=== PATIENT | female | born 1950 | race Caucasian/White ===

== ENCOUNTER 2018-03-22 13:55 | Emergency (ER) | payer MEDICARE, MEDICAID ==
[~2018-03-22] VITALS: Ht 165.1 cm; Wt 59.1 kg
[~2018-03-22 13:55] MED LIST: CHLO25CA10 PO; CITA-278 PO; MORP15TA PO; NAPR-56 PO; ONDA4TAB6 PO
[2018-03-22] MEDS ORDERED: LORazepam 1 MG tablet PO ONE (14:00)
[2018-03-22 14:23] LABS: BASOPHILS % (AUTO) 0.5 % (0-1); EOSINOPHILS # (AUTO) 0.2 X10'3 (0-0.9); EOSINOPHILS % (AUTO) 3.3 % (0-6); HEMATOCRIT 40.5 % (35.0-45.0); HEMOGLOBIN 13.2 g/dl (12.0-16.0); LYMPHOCYTES # (AUTO) 2.7 X10'3 (1.1-4.8); MEAN CORPUSCULAR HEMOGLOBIN 30.5 PG (27.0-31.0); MEAN CORPUSCULAR HGB CONC 32.7 % (33.0-36.5); MEAN CORPUSCULAR VOLUME 93.1 FL (78-98); MEAN PLATELET VOLUME 7.5 FL (7.4-10.4); MONOCYTES # (AUTO) 0.5 X10'3 (0-0.9); MONOCYTES % (AUTO) 6.5 % (2-12); NEUTROPHILS % (AUTO) 53.7 % (42-75); PLATELET COUNT 446 X10'3 (140-440); RED BLOOD COUNT 4.35 X10'6 (4.20-5.60); WHITE BLOOD COUNT 7.4 X10'3 (4.5-11.0)
[2018-03-22 14:37] LABS: ALANINE AMINOTRANSFERASE 20 U/L (12-78); ALBUMIN 3.5 G/DL (3.4-5.0); ALKALINE PHOSPHATASE 143 IU/L (46-116); ANION GAP 17 (8-16); ASPARTATE AMINO TRANSFERASE 19 U/L (10-37); BILIRUBIN,TOTAL 0.2 MG/DL (0.1-1.0); BLOOD UREA NITROGEN 14 MG/DL (7-18); BUN/CREATININE RATIO 20.3 (6.6-38.0); CALCIUM 8.5 MG/DL (8.5-10.1); CHLORIDE 108 MMOL/L (99-107); CREATININE 0.69 MG/DL (0.40-0.90); GLUCOSE 92 MG/DL (70-104); POTASSIUM 3.7 MMOL/L (3.5-5.1); SODIUM 146 MMOL/L (135-145); TOTAL CARBON DIOXIDE 20.8 MMOL/L (24-32); TOTAL PROTEIN 7.1 G/DL (6.4-8.2); eGFR 85 ML/MIN
[2018-03-22 14:45] LABS: ETHANOL 0.289 GM/DL (0.0-0.010)
[2018-03-22] MEDS ORDERED: thiamine 100mg/ml 2ml inj. IV ONE (15:10)
[2018-03-22] MEDS ORDERED: normal saline 1000ML IV soln IVB ONE (15:10)
[2018-03-22] MEDS ORDERED: folic acid 1mg/0.2ml inj IV ONE (15:10)
[2018-03-22 15:19] LABS: CLARITY,URINE SLIGHTLY CLOUDY (Clear); COLOR,URINE YELLOW (Yellow); GLUCOSE, URINE NEGATIVE (Neg); KETONES,URINE NEGATIVE (Neg); LEUKOCYTE ESTERASE ,URINE TRACE (Neg); NITRITES, URINE NEGATIVE (Neg); OCCULT BLOOD,URINE TRACE-INTACT (Neg); PH,URINE 5.5 (4.8-8.0); PROTEIN,URINE NEGATIVE (Neg); UROBILINOGEN,URINE 0.2 E.U/dL (0.2-1.0)
[2018-03-22 15:26] LABS: UA COLLECTION TYPE VOIDED
[2018-03-22 15:30] LABS: BACTERIA,URINE 2+ /HPF (Neg); RBC,URINE 0-2 /HPF (0-2); SQUAMOUS EPITHELIAL CELL,UR MODERATE /LPF (FEW); TRANSITIONAL EPI CELLS,URINE FEW /HPF; WBC,URINE 0-4 /HPF (0-4)
[2018-03-22 15:33] LABS: URINE AMPHETAMINE SCREEN NEGATIVE (Neg); URINE BARBITUATE SCREEN NEGATIVE (Neg); URINE BENZODIAZEPINES SCREEN NEGATIVE (Neg); URINE CANNABINOID SCREEN NEGATIVE (Neg); URINE COCAINE SCREEN NEGATIVE (Neg); URINE METHADONE SCREEN NEGATIVE (Neg); URINE OPIATE SCREEN POSITIVE (Neg); URINE PHENCYCLIDINE SCREEN NEGATIVE (Neg)
[2018-03-22] MEDS ORDERED: HYDROcodone/acetaminophen 10/325mg tab PO ONE (17:05)
[2018-03-22] MEDS ORDERED: ketorolac trometh inj. 60 MG/2 ML VIAL IM ONE (17:05)
[2018-03-22] MEDS ORDERED: folic acid 1mg tablet PO ONE (20:15)
[2018-03-22] MEDS ORDERED: morphine 4 MG/ML inj SYRINge IM ONE (21:05)
[2018-03-23] MEDS: HYDROcodone/acetaminophen 10/325mg tab PO PRN (02:01)
[2018-03-23] MEDS ORDERED: morphine 4 MG/ML inj SYRINge IM ONE (05:55)
[2018-03-23] MEDS ORDERED: ketorolac tromethamine 15mg/ml inj. IM ONE (06:25)
[2018-03-23] MEDS ORDERED: CHLO25CA10 PO (08:10)
[2018-03-23] MEDS: citalopram 20mg tablet PO SCH (08:58)
[2018-03-23] MEDS: naproxen 500mg tablet PO SCH ×2 (08:59→20:11)
[2018-03-23] MEDS: morphine 10mg/0.5ml (conc. morphine) oral syringe PO PRN ×2 (09:26→21:28)
[2018-03-23] MEDS: chlordiazePOXIDE 25mg capsule PO SCH ×2 (11:31→20:11)
[2018-03-23] MEDS ORDERED: chlordiazePOXIDE 25mg capsule PO SCH (20:00)
[2018-03-24] MEDS: HYDROcodone/acetaminophen 10/325mg tab PO PRN (05:36)
[2018-03-24] MEDS ORDERED: magnesium hydroxide 30ml (MOM) UD suspension PO ONE (06:40)
[2018-03-24] MEDS: citalopram 20mg tablet PO SCH (07:22)
[2018-03-24] MEDS: chlordiazePOXIDE 25mg capsule PO SCH (07:22)
[2018-03-24] MEDS: naproxen 500mg tablet PO SCH (08:04)
[2018-03-24] MEDS: morphine 10mg/0.5ml (conc. morphine) oral syringe PO PRN (08:46)
[2018-03-24 10:38] VITALS: BP 149/89
== END 2018-03-24 10:30 ==
LOC: ER 13:55
DX: F10.129 Alcohol abuse with intoxication, unspecified (principal); F29 Unspecified psychosis not due to a substance or known physiological condition; E86.0 Dehydration; E03.9 Hypothyroidism, unspecified; G89.29 Other chronic pain; M54.5 Low back pain; J44.9 Chronic obstructive pulmonary disease, unspecified; K21.9 Gastro-esophageal reflux disease without esophagitis; M19.90 Unspecified osteoarthritis, unspecified site; Z88.1 Allergy status to other antibiotic agents; Z79.899 Other long term (current) drug therapy; Y90.9 Presence of alcohol in blood, level not specified; Z60.2 Problems related to living alone
CPT/HCPCS: 36415; 80053; 80305; 80320; 81001; 84443; 85025; 96361; 96372; 96374; 99285; J1885; J2270; J3411; J7030; J3490

== ENCOUNTER 2018-03-24 08:18 | Inpatient (IN) | payer MEDICARE, MEDICAID ==
[~2018-03-24] VITALS: Ht 165.1 cm; Wt 61.2 kg
[2018-03-24] MEDS ORDERED: mag hydrox/Alum hydrox/simeth 30ml oral suspension PO PRN (10:45)
[2018-03-24] MEDS ORDERED: acetaminophen 325mg tablet PO PRN ×2 (10:45)
[2018-03-24] MEDS ORDERED: magnesium hydroxide 30ml (MOM) UD suspension PO PRN (10:45)
[2018-03-24] MEDS ORDERED: tuberculin, purif. prot. deriv. 5 units/0.1ml ID ONE (10:45)
[2018-03-24 15:00] VITALS: BP 134/67
[2018-03-24] MEDS ORDERED: LORazepam 1 MG tablet PO ONE (15:35)
[2018-03-24] MEDS: HYDROcodone/acetaminophen 10/325mg tab PO PRN (16:44)
[2018-03-24 19:00] VITALS: BP 122/62
[2018-03-24] MEDS: LORazepam 1 MG tablet PO SCH (20:56)
[2018-03-25] MEDS: HYDROcodone/acetaminophen 10/325mg tab PO PRN ×4 (00:01→16:55)
[2018-03-25 08:00] VITALS: BP 109/71
[2018-03-25] MEDS ORDERED: venlafaxine XR 37.5mg cap (Q24H) PO SCH (08:00)
[2018-03-25 08:11] LABS: CHOL/HDL RATIO 2.1 (0.00-4.99); CHOLESTEROL 200 MG/DL (0-200); HDL CHOLESTEROL 94 MG/DL (35-60); LDL CHOLESTEROL 92 MG/DL (50-100); TRIGLYCERIDES 73 MG/DL (20-135)
[2018-03-25 08:13] LABS: HEMOGLOBIN A1C 5.3 % (4.5-6.2)
[2018-03-25] MEDS: LORazepam 1 MG tablet PO SCH ×2 (08:18→12:29)
[2018-03-25 19:00] VITALS: BP 132/69
[2018-03-25] MEDS: LORazepam 1 MG tablet PO PRN (20:48)
[2018-03-25] MEDS: traZODone 50mg tablet PO PRN (20:48)
[2018-03-26] MEDS: HYDROcodone/acetaminophen 10/325mg tab PO PRN ×4 (00:06→20:30)
[2018-03-26] MEDS: venlafaxine XR 37.5mg cap (Q24H) PO SCH (07:31)
[2018-03-26] MEDS: LORazepam 1 MG tablet PO PRN ×3 (07:31→19:15)
[2018-03-26] MEDS: nicotine 14mg patch - 24hr TD SCH (07:33)
[2018-03-26 08:00] VITALS: BP 112/78
[2018-03-26] MEDS: gabapentin 100mg capsule PO SCH ×2 (12:52→20:29)
[2018-03-26 19:00] VITALS: BP 127/68
[2018-03-26] MEDS: traZODone 50mg tablet PO PRN (20:29)
[2018-03-27] MEDS: HYDROcodone/acetaminophen 10/325mg tab PO PRN ×4 (04:55→19:33)
[2018-03-27] MEDS: gabapentin 100mg capsule PO SCH ×3 (07:57→20:50)
[2018-03-27] MEDS: venlafaxine XR 37.5mg cap (Q24H) PO SCH (07:57)
[2018-03-27] MEDS: LIDOcaine 5% patch TP SCH (07:59)
[2018-03-27] MEDS: nicotine 14mg patch - 24hr TD SCH (07:59)
[2018-03-27 08:00] VITALS: BP 114/68
[2018-03-27] MEDS: LORazepam 1 MG tablet PO PRN ×2 (09:35→20:49)
[2018-03-27] MEDS: naproxen sodium 220mg tablet PO PRN (09:35)
[2018-03-27 19:55] VITALS: BP 120/81
[2018-03-27] MEDS: traZODone 50mg tablet PO PRN (20:49)
[2018-03-28 08:00] VITALS: BP 127/76
[2018-03-28] MEDS: gabapentin 100mg capsule PO SCH ×3 (08:01→20:12)
[2018-03-28] MEDS: venlafaxine XR 37.5mg cap (Q24H) PO SCH (08:02)
[2018-03-28] MEDS: LIDOcaine 5% patch TP SCH (08:02)
[2018-03-28] MEDS: HYDROcodone/acetaminophen 10/325mg tab PO PRN ×3 (08:02→20:11)
[2018-03-28] MEDS: nicotine 14mg patch - 24hr TD SCH (08:06)
[2018-03-28] MEDS: LORazepam 1 MG tablet PO PRN ×3 (08:38→20:12)
[2018-03-28] MEDS: naproxen sodium 220mg tablet PO PRN (12:18)
[2018-03-28 19:47] VITALS: BP 131/77
[2018-03-28] MEDS: traZODone 50mg tablet PO PRN (20:11)
[2018-03-29] MEDS: HYDROcodone/acetaminophen 10/325mg tab PO PRN ×4 (05:37→17:53)
[2018-03-29 07:00] VITALS: BP 119/72
[2018-03-29] MEDS: gabapentin 100mg capsule PO SCH ×3 (07:41→20:57)
[2018-03-29] MEDS: venlafaxine XR 37.5mg cap (Q24H) PO SCH (07:41)
[2018-03-29] MEDS: LIDOcaine 5% patch TP SCH (07:42)
[2018-03-29] MEDS: nicotine 14mg patch - 24hr TD SCH (07:42)
[2018-03-29] MEDS: LORazepam 1 MG tablet PO PRN ×2 (07:46→21:01)
[2018-03-29 20:00] VITALS: BP 157/83
[2018-03-29] MEDS: traZODone 50mg tablet PO PRN (21:01)
[2018-03-30] MEDS: HYDROcodone/acetaminophen 10/325mg tab PO PRN ×5 (01:30→20:00)
[2018-03-30 07:35] VITALS: BP 138/70
[2018-03-30] MEDS: gabapentin 100mg capsule PO SCH ×3 (07:43→20:56)
[2018-03-30] MEDS: LORazepam 1 MG tablet PO PRN ×2 (07:44→21:23)
[2018-03-30] MEDS: venlafaxine XR 37.5mg cap (Q24H) PO SCH (07:44)
[2018-03-30] MEDS: LIDOcaine 5% patch TP SCH (07:45)
[2018-03-30] MEDS: nicotine 14mg patch - 24hr TD SCH (07:45)
[2018-03-30] MEDS: naproxen sodium 220mg tablet PO PRN (16:54)
[2018-03-30 20:08] VITALS: BP 129/68
[2018-03-30] MEDS: traZODone 50mg tablet PO PRN (20:55)
[2018-03-31] MEDS: HYDROcodone/acetaminophen 10/325mg tab PO PRN ×5 (00:12→18:04)
[2018-03-31 07:53] VITALS: BP 112/53
[2018-03-31] MEDS: gabapentin 100mg capsule PO SCH ×3 (07:56→20:20)
[2018-03-31] MEDS: venlafaxine 25mg tablet PO SCH ×2 (07:56→13:20)
[2018-03-31] MEDS: nicotine 14mg patch - 24hr TD SCH (07:57)
[2018-03-31] MEDS: LIDOcaine 5% patch TP SCH (07:57)
[2018-03-31] MEDS: LORazepam 1 MG tablet PO PRN ×2 (10:36→18:03)
[2018-03-31 19:00] VITALS: BP 158/79
[2018-03-31] MEDS: naproxen sodium 220mg tablet PO PRN (20:19)
[2018-03-31] MEDS: traZODone 50mg tablet PO PRN (20:20)
[2018-04-01] MEDS: nicotine 14mg patch - 24hr TD SCH (07:07)
[2018-04-01] MEDS: LIDOcaine 5% patch TP SCH (07:07)
[2018-04-01] MEDS: venlafaxine XR 75mg capsule (Q24H) PO SCH (07:08)
[2018-04-01] MEDS: gabapentin 100mg capsule PO SCH ×3 (07:08→19:33)
[2018-04-01] MEDS: HYDROcodone/acetaminophen 10/325mg tab PO PRN ×3 (07:09→17:26)
[2018-04-01 07:34] VITALS: BP 128/71
[2018-04-01] MEDS: LORazepam 1 MG tablet PO PRN (09:12)
[2018-04-01 19:00] VITALS: BP 164/96
[2018-04-01] MEDS: traZODone 50mg tablet PO PRN (19:32)
[2018-04-02] MEDS: LORazepam 1 MG tablet PO PRN (02:03)
[2018-04-02] MEDS: HYDROcodone/acetaminophen 10/325mg tab PO PRN ×5 (02:03→20:40)
[2018-04-02] MEDS: nicotine 14mg patch - 24hr TD SCH (07:36)
[2018-04-02] MEDS: venlafaxine XR 75mg capsule (Q24H) PO SCH (07:36)
[2018-04-02] MEDS: gabapentin 100mg capsule PO SCH ×4 (07:36→20:37)
[2018-04-02 08:00] VITALS: BP 139/86
[2018-04-02] MEDS: LIDOcaine 5% patch TP SCH (08:01)
[2018-04-02] MEDS ORDERED: HYDROcodone/acetaminophen 10/325mg tab PO PRN (09:00)
[2018-04-02] MEDS ORDERED: MESSAGE TO NURSING PO NR (10:00)
[2018-04-02] MEDS: LORazepam 0.5 MG tablet PO PRN (12:09)
[2018-04-02 19:00] VITALS: BP 115/76
[2018-04-02] MEDS: mirtazapine 15mg tablet PO SCH (20:38)
[2018-04-03] MEDS: LORazepam 0.5 MG tablet PO PRN (04:02)
[2018-04-03] MEDS: HYDROcodone/acetaminophen 10/325mg tab PO PRN ×5 (04:02→21:20)
[2018-04-03] MEDS: gabapentin 100mg capsule PO SCH ×2 (07:50→12:20)
[2018-04-03] MEDS: venlafaxine XR 75mg capsule (Q24H) PO SCH (07:50)
[2018-04-03] MEDS: nicotine 14mg patch - 24hr TD SCH (07:51)
[2018-04-03] MEDS: LIDOcaine 5% patch TP SCH (07:51)
[2018-04-03 08:00] VITALS: BP 138/81
[2018-04-03] MEDS ORDERED: HYDROcodone/acetaminophen 10/325mg tab PO PRN (16:35)
[2018-04-03 19:47] VITALS: BP 108/53
[2018-04-03] MEDS: gabapentin 300mg capsule PO SCH (21:20)
[2018-04-03] MEDS: mirtazapine 15mg tablet PO SCH (21:20)
[2018-04-04] MEDS: HYDROcodone/acetaminophen 10/325mg tab PO PRN ×4 (02:56→19:13)
[2018-04-04 07:28] VITALS: BP 106/61
[2018-04-04] MEDS: venlafaxine XR 75mg capsule (Q24H) PO SCH (08:08)
[2018-04-04] MEDS: gabapentin 300mg capsule PO SCH ×3 (08:08→14:28)
[2018-04-04] MEDS: nicotine 14mg patch - 24hr TD SCH (08:08)
[2018-04-04] MEDS: LIDOcaine 5% patch TP SCH (08:09)
[2018-04-04] MEDS: LORazepam 0.5 MG tablet PO PRN (14:34)
[2018-04-04] MEDS ORDERED: HYDROcodone/acetaminophen 10/325mg tab PO PRN (19:50)
[2018-04-04 19:59] VITALS: BP 127/63
[2018-04-04] MEDS: mirtazapine 15mg tablet PO SCH (21:00)
[2018-04-04] MEDS: traZODone 50mg tablet PO PRN (21:51)
[2018-04-04] MEDS: gabapentin 400mg capsule PO SCH (21:51)
[2018-04-04] MEDS: gabapentin 100mg capsule PO SCH (21:51)
[2018-04-05] MEDS: HYDROcodone/acetaminophen 10/325mg tab PO PRN ×3 (05:38→17:17)
[2018-04-05 08:00] VITALS: BP 150/79
[2018-04-05] MEDS: venlafaxine XR 75mg capsule (Q24H) PO SCH (08:00)
[2018-04-05] MEDS: gabapentin 100mg capsule PO SCH ×3 (08:29→20:55)
[2018-04-05] MEDS: gabapentin 400mg capsule PO SCH ×3 (08:30→21:00)
[2018-04-05] MEDS: LIDOcaine 5% patch TP SCH (08:31)
[2018-04-05] MEDS: nicotine 14mg patch - 24hr TD SCH (08:31)
[2018-04-05 19:00] VITALS: BP 95/57
[2018-04-05] MEDS: naproxen sodium 220mg tablet PO PRN (20:55)
[2018-04-05] MEDS: mirtazapine 15mg tablet PO SCH (20:56)
[2018-04-05] MEDS: LORazepam 0.5 MG tablet PO PRN (20:57)
[2018-04-06] MEDS: HYDROcodone/acetaminophen 10/325mg tab PO PRN ×4 (00:24→16:56)
[2018-04-06 08:00] VITALS: BP 114/64
[2018-04-06] MEDS: gabapentin 100mg capsule PO SCH ×3 (08:00→22:11)
[2018-04-06] MEDS: venlafaxine XR 75mg capsule (Q24H) PO SCH (08:00)
[2018-04-06] MEDS: gabapentin 400mg capsule PO SCH ×3 (08:52→22:10)
[2018-04-06] MEDS: LIDOcaine 5% patch TP SCH (08:53)
[2018-04-06] MEDS: nicotine 14mg patch - 24hr TD SCH (08:53)
[2018-04-06] MEDS: LORazepam 0.5 MG tablet PO PRN (12:18)
[2018-04-06 20:00] VITALS: BP 155/80
[2018-04-06] MEDS: mirtazapine 15mg tablet PO SCH (22:19)
[2018-04-06] MEDS: traZODone 50mg tablet PO PRN (23:42)
[2018-04-07] MEDS: traZODone 50mg tablet PO PRN ×2 (02:52→21:39)
[2018-04-07] MEDS: HYDROcodone/acetaminophen 10/325mg tab PO PRN ×4 (02:53→16:35)
[2018-04-07 08:00] VITALS: BP 151/88
[2018-04-07] MEDS: gabapentin 100mg capsule PO SCH ×3 (08:00→21:38)
[2018-04-07] MEDS: venlafaxine XR 75mg capsule (Q24H) PO SCH (08:06)
[2018-04-07] MEDS: gabapentin 400mg capsule PO SCH ×3 (08:07→21:38)
[2018-04-07] MEDS: nicotine 14mg patch - 24hr TD SCH (08:10)
[2018-04-07] MEDS: LIDOcaine 5% patch TP SCH (08:10)
[2018-04-07] MEDS: LORazepam 0.5 MG tablet PO PRN (16:35)
[2018-04-07 20:00] VITALS: BP 145/85
[2018-04-07] MEDS: mirtazapine 15mg tablet PO SCH (21:39)
[2018-04-08] MEDS: HYDROcodone/acetaminophen 10/325mg tab PO PRN ×3 (04:53→15:29)
[2018-04-08 08:00] VITALS: BP 122/71
[2018-04-08] MEDS: gabapentin 400mg capsule PO SCH ×2 (08:13→13:00)
[2018-04-08] MEDS: gabapentin 100mg capsule PO SCH ×2 (08:13→13:00)
[2018-04-08] MEDS: venlafaxine XR 75mg capsule (Q24H) PO SCH (08:13)
[2018-04-08] MEDS: nicotine 14mg patch - 24hr TD SCH (08:14)
[2018-04-08] MEDS: LIDOcaine 5% patch TP SCH (08:15)
[2018-04-08] MEDS: LORazepam 0.5 MG tablet PO PRN (09:13)
[2018-04-08] MEDS ORDERED: GABA100C PO (14:39)
[2018-04-08] MEDS ORDERED: VENL150T3 PO (14:39)
[2018-04-08] MEDS ORDERED: NICO-631 TD (14:39)
[2018-04-08] MEDS ORDERED: MIRT15TA8 PO (14:39)
[2018-04-08] MEDS ORDERED: GABA-534 PO (14:39)
[2018-04-08] MEDS ORDERED: HYDR-3972 PO (14:39)
[2018-04-08] MEDS ORDERED: NAPR220T67 PO (14:39)
[2018-04-08] MEDS ORDERED: TRAZ-218 PO (14:39)
[2018-04-08] MEDS ORDERED: LIDO700A47 TP (14:39)
[2018-04-08] MEDS ORDERED: HYDR-3717 PO (15:57)
== END 2018-04-08 17:20 | disposition home or self-care (01) | DRG 885 ==
LOC: ADULT MH 08:18
PROVIDERS: ADMIT Psychiatry & Neurology Psychiatry; ATTEND Psychiatry & Neurology Psychiatry
DX: F33.2 Major depressive disorder, recurrent severe without psychotic features (principal); R45.851 Suicidal ideations; F41.9 Anxiety disorder, unspecified; F10.20 Alcohol dependence, uncomplicated; G89.4 Chronic pain syndrome; G47.9 Sleep disorder, unspecified; G62.9 Polyneuropathy, unspecified; M25.511 Pain in right shoulder; M25.539 Pain in unspecified wrist; M54.9 Dorsalgia, unspecified; F11.90 Opioid use, unspecified, uncomplicated; M81.0 Age-related osteoporosis without current pathological fracture; Y90.8 Blood alcohol level of 240 mg/100 ml or more; Z90.49 Acquired absence of other specified parts of digestive tract; Z88.8 Allergy status to other drugs, medicaments and biological substances; Z87.891 Personal history of nicotine dependence; Z81.1 Family history of alcohol abuse and dependence
CPT/HCPCS: 36415; 80061; 83036; 87070; 99406

== ENCOUNTER 2019-04-22 22:16 | Inpatient (IN) | payer MEDICARE, MEDICAID ==
[~2019-04-22] VITALS: Ht 165.1 cm; Wt 59.1 kg
[~2019-04-22 22:16] MED LIST changes: -CHLO25CA10 PO; -CITA-278 PO; +GABA-534 PO; +GABA100C PO; +HYDR-3972 PO; +LIDO700A47 TP; +MIRT15TA8 PO; -MORP15TA PO; -NAPR-56 PO; +NAPR220T67 PO; +NICO-631 TD; -ONDA4TAB6 PO; +TRAZ-251 PO; +VENL150T3 PO
[2019-04-22] MEDS ORDERED: ondansetron/PF 4mg/2ml inj IV ONE (23:05)
--- NOTE | 2019-04-22 23:06 | NUR ---
CALLED HOSE CEMENTER ETA 30 MINS FROM 23:06
[2019-04-22] MEDS: morphine 4 MG/ML inj SYRINge IV PRN (23:22)
[2019-04-23] MEDS ORDERED: HYDR-3965 PO (00:12)
[2019-04-23] MEDS ORDERED: LISI-604 PO (00:12)
[2019-04-23] MEDS ORDERED: EFF25T PO (00:12)
[2019-04-23] MEDS ORDERED: NAPR-56 PO (00:12)
[2019-04-23] MEDS ORDERED: GABA-532 PO (00:12)
[2019-04-23 00:21] LABS: BASOPHILS # (AUTO) 0.1 X10'3 (0-0.2); BASOPHILS % (AUTO) 0.6 % (0-1); EOSINOPHILS # (AUTO) 0.4 X10'3 (0-0.9); LYMPHOCYTES # (AUTO) 2.7 X10'3 (1.1-4.8); LYMPHOCYTES % (AUTO) 28.4 % (21-51); MEAN CORPUSCULAR HEMOGLOBIN 30.2 PG (27.0-31.0); MEAN CORPUSCULAR HGB CONC 34.1 g/dL (33.0-36.5); MEAN CORPUSCULAR VOLUME 88.6 FL (78-98); MEAN PLATELET VOLUME 8.2 FL (7.4-10.4); MONOCYTES # (AUTO) 0.7 X10'3 (0-0.9); MONOCYTES % (AUTO) 7.1 % (2-12); NEUTROPHILS # (AUTO) 5.8 X10'3 (1.8-7.7); NEUTROPHILS % (AUTO) 59.9 % (42-75); PLATELET COUNT 382 X10'3 (140-440); RED BLOOD COUNT 4.29 X10'6 (4.20-5.60); RED CELL DISTRIBUTION WIDTH 15.6 % (11.5-14.5); WHITE BLOOD COUNT 9.6 X10'3 (4.5-11.0)
[2019-04-23 00:28] LABS: PARTIAL THROMBOPLASTIN TIME 26 SECONDS (22-32)
[2019-04-23 00:32] LABS: ALANINE AMINOTRANSFERASE 24 U/L (12-78); ALBUMIN 3.6 G/DL (3.4-5.0); ALBUMIN/GLOBULIN RATIO 1.1 (1.1-1.5); ALKALINE PHOSPHATASE 153 IU/L (46-116); ANION GAP 6 (8-16); ASPARTATE AMINO TRANSFERASE 22 U/L (10-37); BILIRUBIN,TOTAL 0.2 MG/DL (0.1-1.0); BLOOD UREA NITROGEN 17 MG/DL (7-18); BUN/CREATININE RATIO 24.6 (6.6-38.0); CALCIUM 8.8 MG/DL (8.5-10.1); CHLORIDE 108 MMOL/L (99-107); CREATININE 0.69 MG/DL (0.40-0.90); GLUCOSE 94 MG/DL (70-104); POTASSIUM 4.1 MMOL/L (3.5-5.1); SODIUM 143 MMOL/L (135-145); TOTAL CARBON DIOXIDE 28.9 MMOL/L (24-32); eGFR 85 ML/MIN
[2019-04-23] MEDS ORDERED: LORazepam 2 mg/ml vial IV ONE (00:35)
[2019-04-23] MEDS ORDERED: magnesium 4gm in 100ml NS 100 ML IV PRN (00:55)
[2019-04-23] MEDS ORDERED: potassium CL 10mEq/100ml bag 100 ML IV PRN ×2 (00:55)
[2019-04-23] MEDS ORDERED: acetaminophen 325mg tablet PO PRN (00:55)
[2019-04-23] MEDS ORDERED: magnesium 2GM in 50ml NS 50 ML IV PRN (00:55)
[2019-04-23] MEDS ORDERED: potassium Cl 20 mEq SR tablet PO PRN ×2 (00:55)
[2019-04-23] MEDS ORDERED: magnesium Cl slow-release 64mg tablet PO PRN (00:55)
[2019-04-23] MEDS ORDERED: morphine 2 MG/ML inj. syringe IV PRN (00:55)
[2019-04-23] MEDS ORDERED: ondansetron/PF 4mg/2ml inj IV PRN (00:55)
[2019-04-23 00:57] LABS: CLARITY,URINE CLOUDY (Clear); COLOR,URINE YELLOW (Yellow); GLUCOSE, URINE NEGATIVE (Neg); KETONES,URINE NEGATIVE (Neg); LEUKOCYTE ESTERASE ,URINE NEGATIVE (Neg); NITRITES, URINE POSITIVE (Neg); OCCULT BLOOD,URINE NEGATIVE (Neg); PROTEIN,URINE NEGATIVE (Neg); UROBILINOGEN,URINE 0.2 E.U/dL (0.2-1.0)
[2019-04-23 01:02] LABS: UA COLLECTION TYPE FOLEY CATH
[2019-04-23 01:06] LABS: BACTERIA,URINE 4+ /HPF (Neg); MUCUS STRANDS NONE SEEN /LPF (Neg); RBC,URINE NONE SEEN /HPF (0-2); SQUAMOUS EPITHELIAL CELL,UR NONE SEEN /LPF (FEW); TRANSITIONAL EPI CELLS,URINE FEW /HPF; WBC,URINE 0-4 /HPF (0-4)
[2019-04-23] MEDS: normal saline 1000ml 1,000 ML IV SCH (01:12)
[2019-04-23] MEDS: morphine 4 MG/ML inj SYRINge IV PRN (01:33)
[2019-04-23 01:45] VITALS: BP 110/71
--- NOTE | 2019-04-23 03:16 | NUR ---
Called MD to request increase in pain medication, as patient is still in 8/9-10 pain after 1hour from getting 4mg of morphine in ER. Ishmael ordered. Informed MD that patient usually takes Trazadone and Remeron, but she did not want to order anything more for anxiety.
[2019-04-23 06:00] VITALS: BP 110/49
--- NOTE | 2019-04-23 06:03 | NUR ---
Problems reprioritized. Patient report given, questions answered & plan of care reviewed with TRAVIS Suero.
--- NOTE | 2019-04-23 06:16 | NUR ---
received report from fred winston
[2019-04-23] MEDS: HYDROmorphone 1 mg/ml syringe IV PRN ×6 (07:06→22:59)
[2019-04-23] MEDS: K and/or MAG REPLACEMENT MC SCH (07:10)
[2019-04-23] MEDS: levoFLOXACIN-Levaquin 500mg/D5 100 ML IV SCH (08:56)
[2019-04-23] MEDS: HYDROcodone/acetaminophen 5mg/325mg tablet PO PRN ×2 (09:29→21:56)
[2019-04-23 10:00] VITALS: BP 128/55
[2019-04-23] MEDS ORDERED: traZODone 50mg tablet PO PRN (12:25)
[2019-04-23] MEDS: gabapentin 300mg capsule PO SCH ×2 (13:07→21:56)
--- NOTE | 2019-04-23 18:02 | NUR ---
gave report to fred hardin
--- NOTE | 2019-04-23 18:05 | NUR ---
Patient in room ORTHO 4021. I have received report from Nimo ROBLES and had the opportunity to ask questions and assume patient care.
[2019-04-23 19:00] VITALS: BP 110/60
[2019-04-23] MEDS: lactobacillus rhamnosus 10,000 MMU CELLS/CAPSULE PO SCH (19:13)
[2019-04-23] MEDS: naproxen 500mg tablet PO SCH (19:13)
[2019-04-23] MEDS ORDERED: HYDROcodone/acetaminophen 5mg/325mg tablet PO SCH (20:00)
--- NOTE | 2019-04-23 21:20 | NUR ---
Called May the sports statistician about lack of second KUB imaging report. Network Designer ordered to advance NG tube 3-5 cm since KUB is in GE junction. NG tube advanced. Pt tolerated well. Will continue to monitor. Addendum: 04/24/19 at 0554 by Ellen Licea RN Wrong pt
[2019-04-23] MEDS: mirtazapine 15mg tablet PO SCH (21:56)
[2019-04-23 22:00] VITALS: BP 124/64
[2019-04-24] VITALS (16 sets, daily range): BP systolic 91–141; BP diastolic 35–119
[2019-04-24] MEDS: HYDROcodone/acetaminophen 5mg/325mg tablet PO PRN ×2 (02:15→08:37)
[2019-04-24] MEDS: HYDROmorphone 1 mg/ml syringe IV PRN ×5 (03:59→22:56)
[2019-04-24 05:54] LABS: BASOPHILS # (AUTO) 0.1 X10'3 (0-0.2); BASOPHILS % (AUTO) 0.7 % (0-1); EOSINOPHILS # (AUTO) 0.4 X10'3 (0-0.9); EOSINOPHILS % (AUTO) 3.5 % (0-6); HEMATOCRIT 31.5 % (35.0-45.0); HEMOGLOBIN 10.7 g/dl (12.0-16.0); LYMPHOCYTES # (AUTO) 2.6 X10'3 (1.1-4.8); LYMPHOCYTES % (AUTO) 25.4 % (21-51); MEAN CORPUSCULAR HEMOGLOBIN 30.4 PG (27.0-31.0); MEAN CORPUSCULAR HGB CONC 33.9 g/dL (33.0-36.5); MEAN CORPUSCULAR VOLUME 89.6 FL (78-98); MONOCYTES # (AUTO) 1.5 X10'3 (0-0.9); MONOCYTES % (AUTO) 14.2 % (2-12); NEUTROPHILS # (AUTO) 5.7 X10'3 (1.8-7.7); NEUTROPHILS % (AUTO) 56.2 % (42-75); PLATELET COUNT 264 X10'3 (140-440); RED BLOOD COUNT 3.51 X10'6 (4.20-5.60); RED CELL DISTRIBUTION WIDTH 15.3 % (11.5-14.5); WHITE BLOOD COUNT 10.2 X10'3 (4.5-11.0)
[2019-04-24 06:08] LABS: ALBUMIN 3.1 G/DL (3.4-5.0); ANION GAP 9 (8-16); BLOOD UREA NITROGEN 19 MG/DL (7-18); BUN/CREATININE RATIO 23.8 (6.6-38.0); CALCIUM 8.2 MG/DL (8.5-10.1); CHLORIDE 103 MMOL/L (99-107); GLUCOSE 82 MG/DL (70-104); POTASSIUM 3.8 MMOL/L (3.5-5.1); SODIUM 136 MMOL/L (135-145); TOTAL CARBON DIOXIDE 23.7 MMOL/L (24-32); eGFR 71 ML/MIN
--- NOTE | 2019-04-24 06:09 | NUR ---
Problems reprioritized. Patient report given, questions answered & plan of care reviewed with Anila ROBLES.
[2019-04-24] MEDS: K and/or MAG REPLACEMENT MC SCH (08:00)
[2019-04-24] MEDS: lisinopril 5mg tablet PO SCH (08:36)
[2019-04-24] MEDS: gabapentin 300mg capsule PO SCH ×3 (08:36→21:58)
[2019-04-24] MEDS: lactobacillus rhamnosus 10,000 MMU CELLS/CAPSULE PO SCH ×2 (08:36→19:23)
[2019-04-24] MEDS: venlafaxine XR 75mg capsule (Q24H) PO SCH (08:37)
[2019-04-24] MEDS: naproxen 500mg tablet PO SCH ×2 (08:37→19:24)
[2019-04-24] MEDS: levoFLOXACIN-Levaquin 500mg/D5 100 ML IV SCH (08:40)
--- NOTE | 2019-04-24 14:00 | NUR ---
To OR via bed
[2019-04-24] MEDS ORDERED: tetracaine 1% (10mg/ml) pres. free inj. ONE (14:39)
[2019-04-24] MEDS ORDERED: MIDAZolam 1mg/ml 10ml vial ONE (14:42)
[2019-04-24] MEDS ORDERED: fentaNYL/PF 50MCG/1 ML 2ML syringe ONE (14:42)
[2019-04-24] MEDS ORDERED: clindamycin phosphate 150mg/ml inj. ONE (15:10)
[2019-04-24] MEDS ORDERED: ringers solution, lacted 1,000 ML IV SCH (16:13)
[2019-04-24] MEDS ORDERED: meperidine/PF 25mg/ml syringe IV PRN ×3 (16:15)
[2019-04-24] MEDS ORDERED: ondansetron/PF 4mg/2ml inj IV PRN (16:15)
[2019-04-24] MEDS ORDERED: proCHLORperazine 10 MG/2 ml inj IV PRN (16:15)
[2019-04-24] MEDS ORDERED: morphine 4 MG/ML inj SYRINge IV PRN ×2 (16:15)
--- NOTE | 2019-04-24 17:00 | NUR ---
Received from OR via BED , accompanied by Anesthesiologist and report given by Anesthesiolgist. PATIENT WAKING UP, DENIES PAIN, V/S WNL, NEUROVASCULAR CHECKS INTACT, 20G PIV LUE , DRESSING TO LEFT KNEE CDI W/ COLD POWDER PACK AND W/ SCD ON. F/C DRAINING CLEAR YELLOW URINE. SENSATION T-10 Addendum: 04/24/19 at 1726 by Rafael Delarosa RN WRONG TIME , IT SHOULD BE FOR 1710 NOT 1700
--- NOTE | 2019-04-24 17:10 | NUR ---
Received from OR via BED, accompanied by Anesthesiologist DR CEDENO and report given by Anesthesiolgist. PATIENT ORIENTED X4, DENIES PAIN, V/S WNL, NEUROVASCULAR CHECKS INTACT, 20G PIV LUE , DRESSING TO LEFT KNEE CDI W/ COLD POWDER PACK AND W/ SCD ON. F/C DRAINING CLEAR YELLOW URINE. SENSATION T-10,
--- NOTE | 2019-04-24 18:00 | NUR ---
PATIENT ORIENTED X4, DENIES PAIN, V/S WNL, NEUROVASCULAR CHECKS INTACT, 20G PIV LUE , DRESSING TO LEFT KNEE CDI W/ COLD POWDER PACK AND W/ SCD ON. F/C DRAINING CLEAR YELLOW URINE. SENSATION T-10, . PATIENT TAKEN TO 4021B WITH ALL BELONGINGS AND HOOKED UP TO MONITORS IN ROOM AND REPORT GIVEN TO IMAGER WHO HAS TAKEN OVER PATIENT CARE.
--- NOTE | 2019-04-24 18:05 | NUR ---
RECEIVED BACK TO 402. A/O, HOOKED TO VS MACHINE, DENIES PAIN.
--- NOTE | 2019-04-24 18:15 | NUR ---
REPORT TO ABIGAIL ROBLES
--- NOTE | 2019-04-24 18:20 | NUR ---
Patient in room ORTHO 4021. I have received report from Anila ROBLES and had the opportunity to ask questions and assume patient care.
[2019-04-24] MEDS: clindamycin 600mg/D5W 50ml 50 ML IV SCH (19:23)
[2019-04-24] MEDS: HYDROcodone/acetaminophen 10/325mg tab PO PRN (20:31)
[2019-04-24] MEDS: mirtazapine 15mg tablet PO SCH (21:58)
[2019-04-25] VITALS (8 sets, daily range): BP systolic 62–137; BP diastolic 31–65
[2019-04-25] MEDS: clindamycin 600mg/D5W 50ml 50 ML IV SCH ×4 (01:32→20:27)
[2019-04-25] MEDS: normal saline 1000ml 1,000 ML IV SCH ×3 (01:35→20:30)
[2019-04-25] MEDS: HYDROcodone/acetaminophen 10/325mg tab PO PRN ×4 (05:06→20:28)
--- NOTE | 2019-04-25 06:29 | NUR ---
Problems reprioritized. Patient report given, questions answered & plan of care reviewed with Anila ROBLES.
[2019-04-25 07:07] LABS: BASOPHILS % (AUTO) 0.3 % (0-1); EOSINOPHILS % (AUTO) 0.4 % (0-6); HEMATOCRIT 29.2 % (35.0-45.0); HEMOGLOBIN 9.8 g/dl (12.0-16.0); LYMPHOCYTES # (AUTO) 0.7 X10'3 (1.1-4.8); LYMPHOCYTES % (AUTO) 5.8 % (21-51); MEAN CORPUSCULAR HEMOGLOBIN 30.3 PG (27.0-31.0); MEAN CORPUSCULAR HGB CONC 33.5 g/dL (33.0-36.5); MEAN CORPUSCULAR VOLUME 90.2 FL (78-98); MEAN PLATELET VOLUME 8.6 FL (7.4-10.4); MONOCYTES # (AUTO) 1.5 X10'3 (0-0.9); MONOCYTES % (AUTO) 12.2 % (2-12); NEUTROPHILS # (AUTO) 9.8 X10'3 (1.8-7.7); NEUTROPHILS % (AUTO) 81.3 % (42-75); PLATELET COUNT 218 X10'3 (140-440); RED BLOOD COUNT 3.23 X10'6 (4.20-5.60); RED CELL DISTRIBUTION WIDTH 15.3 % (11.5-14.5); WHITE BLOOD COUNT 12.1 X10'3 (4.5-11.0)
[2019-04-25 07:23] LABS: ALBUMIN 2.8 G/DL (3.4-5.0); ANION GAP 12 (8-16); BLOOD UREA NITROGEN 16 MG/DL (7-18); BUN/CREATININE RATIO 28.1 (6.6-38.0); CALCIUM 8.3 MG/DL (8.5-10.1); CHLORIDE 106 MMOL/L (99-107); CREATININE 0.57 MG/DL (0.40-0.90); GLUCOSE 72 MG/DL (70-104); MAGNESIUM 1.6 MG/DL (1.5-2.4); POTASSIUM 4.1 MMOL/L (3.5-5.1); SODIUM 139 MMOL/L (135-145); TOTAL CARBON DIOXIDE 21.2 MMOL/L (24-32); eGFR > 90 ML/MIN
[2019-04-25] MEDS: HYDROmorphone 1 mg/ml syringe IV PRN (07:25)
[2019-04-25] MEDS: K and/or MAG REPLACEMENT MC SCH (08:00)
[2019-04-25] MEDS: lisinopril 5mg tablet PO SCH (08:44)
[2019-04-25] MEDS: naproxen 500mg tablet PO SCH ×2 (08:44→20:27)
[2019-04-25] MEDS: venlafaxine XR 75mg capsule (Q24H) PO SCH (08:44)
[2019-04-25] MEDS: lactobacillus rhamnosus 10,000 MMU CELLS/CAPSULE PO SCH ×2 (08:44→20:27)
[2019-04-25] MEDS: gabapentin 300mg capsule PO SCH ×3 (08:44→20:27)
[2019-04-25] MEDS: LORazepam 0.5 MG tablet PO PRN (09:23)
[2019-04-25] MEDS: levoFLOXACIN 500mg tablet PO SCH (14:38)
--- NOTE | 2019-04-25 16:30 | NUR ---
PAGE TO DR DIOR RE PATIENT BEING HYPOTENSIVE AT SIDE OF BED WITH PT. NS FLUID BOLUS GIVEN
[2019-04-25] MEDS ORDERED: normal saline 1000ml 1,000 ML IV ONE ×2 (16:35→22:05)
--- NOTE | 2019-04-25 18:25 | NUR ---
Received report from Anila ROBLES, assumed care of patient.
[2019-04-25] MEDS: mirtazapine 15mg tablet PO SCH (20:27)
--- NOTE | 2019-04-25 22:02 | NUR ---
Patient hypotensive at this time with a BP of 72/49 on the right arm and 62/31 on the left arm with a heart rate of 97. Spoke with MD Riley, new orders for 1L bolus.
[2019-04-26 02:00] VITALS: BP 96/40
--- NOTE | 2019-04-26 05:17 | NUR ---
Pt was found to have [place] at bedside. Pt educated and able to verbalize understanding of hospital policy on medications at bedside. Medication take to pharmacy to be stored until discharge.
--- NOTE | 2019-04-26 06:20 | NUR ---
Patient in room ORTHO 4021. I have received report from JOEL ROBLES and had the opportunity to ask questions and assume patient care.
[2019-04-26 06:22] LABS: BASOPHILS % (AUTO) 0.3 % (0-1); EOSINOPHILS # (AUTO) 0.2 X10'3 (0-0.9); EOSINOPHILS % (AUTO) 1.5 % (0-6); HEMATOCRIT 24.1 % (35.0-45.0); HEMOGLOBIN 8.1 g/dl (12.0-16.0); LYMPHOCYTES # (AUTO) 0.9 X10'3 (1.1-4.8); LYMPHOCYTES % (AUTO) 9.3 % (21-51); MEAN CORPUSCULAR HEMOGLOBIN 30.7 PG (27.0-31.0); MEAN CORPUSCULAR HGB CONC 33.6 g/dL (33.0-36.5); MEAN CORPUSCULAR VOLUME 91.1 FL (78-98); MEAN PLATELET VOLUME 8.4 FL (7.4-10.4); MONOCYTES # (AUTO) 1.7 X10'3 (0-0.9); MONOCYTES % (AUTO) 16.3 % (2-12); NEUTROPHILS # (AUTO) 7.4 X10'3 (1.8-7.7); NEUTROPHILS % (AUTO) 72.6 % (42-75); PLATELET COUNT 214 X10'3 (140-440); RED BLOOD COUNT 2.64 X10'6 (4.20-5.60); RED CELL DISTRIBUTION WIDTH 15.7 % (11.5-14.5); WHITE BLOOD COUNT 10.2 X10'3 (4.5-11.0)
--- NOTE | 2019-04-26 06:25 | NUR ---
Report given to Ko ROBLES.
[2019-04-26 06:36] LABS: ALBUMIN 2.2 G/DL (3.4-5.0); ANION GAP 11 (8-16); BLOOD UREA NITROGEN 15 MG/DL (7-18); BUN/CREATININE RATIO 27.8 (6.6-38.0); CALCIUM 7.5 MG/DL (8.5-10.1); CHLORIDE 109 MMOL/L (99-107); CREATININE 0.54 MG/DL (0.40-0.90); GLUCOSE 87 MG/DL (70-104); MAGNESIUM 1.7 MG/DL (1.5-2.4); SODIUM 141 MMOL/L (135-145); TOTAL CARBON DIOXIDE 21.2 MMOL/L (24-32); eGFR > 90 ML/MIN
[2019-04-26] MEDS: K and/or MAG REPLACEMENT MC SCH (08:00)
[2019-04-26 08:17] LABS: GIANT PLATELET FEW; PLATELET ESTIMATE NORMAL; TOTAL CELLS COUNTED 100
[2019-04-26] MEDS: lactobacillus rhamnosus 10,000 MMU CELLS/CAPSULE PO SCH ×2 (08:43→20:42)
[2019-04-26] MEDS: venlafaxine XR 75mg capsule (Q24H) PO SCH (08:44)
[2019-04-26] MEDS: naproxen 500mg tablet PO SCH ×2 (08:44→20:42)
[2019-04-26] MEDS: magnesium hydroxide 30ml (MOM) UD suspension PO PRN (08:44)
[2019-04-26] MEDS: HYDROcodone/acetaminophen 10/325mg tab PO PRN ×3 (08:44→16:33)
[2019-04-26] MEDS: gabapentin 300mg capsule PO SCH ×3 (08:44→20:43)
[2019-04-26] MEDS: enoxaparin 30mg/0.3ml syringe SUBCUT SCH (08:46)
[2019-04-26 10:00] VITALS: BP 113/47
[2019-04-26] MEDS: levoFLOXACIN 500mg tablet PO SCH (11:23)
[2019-04-26] MEDS: LORazepam 0.5 MG tablet PO PRN (11:25)
[2019-04-26] MEDS: normal saline 1000ml 1,000 ML IV SCH ×2 (12:36→16:33)
[2019-04-26 18:00] VITALS: BP 133/50
--- NOTE | 2019-04-26 18:20 | NUR ---
Problems reprioritized. Patient report given, questions answered & plan of care reviewed with PAT RN.
[2019-04-26] MEDS: HYDROmorphone 1 mg/ml syringe IV PRN (20:37)
[2019-04-26] MEDS: mirtazapine 15mg tablet PO SCH (20:43)
[2019-04-26 22:00] VITALS: BP 97/54
[2019-04-27] MEDS: HYDROcodone/acetaminophen 10/325mg tab PO PRN ×3 (01:42→12:58)
[2019-04-27] MEDS: normal saline 1000ml 1,000 ML IV SCH (02:12)
--- NOTE | 2019-04-27 06:25 | NUR ---
Patient in room ORTHO 4021. I have received report from EVELIN RN and had the opportunity to ask questions and assume patient care.
[2019-04-27 06:53] LABS: BASOPHILS # (AUTO) 0.1 X10'3 (0-0.2); BASOPHILS % (AUTO) 0.8 % (0-1); EOSINOPHILS # (AUTO) 0.3 X10'3 (0-0.9); EOSINOPHILS % (AUTO) 2.4 % (0-6); HEMATOCRIT 23.4 % (35.0-45.0); LYMPHOCYTES # (AUTO) 1.3 X10'3 (1.1-4.8); LYMPHOCYTES % (AUTO) 12.2 % (21-51); MEAN CORPUSCULAR HEMOGLOBIN 30.6 PG (27.0-31.0); MEAN CORPUSCULAR HGB CONC 34.2 g/dL (33.0-36.5); MEAN CORPUSCULAR VOLUME 89.4 FL (78-98); MEAN PLATELET VOLUME 8.3 FL (7.4-10.4); MONOCYTES # (AUTO) 1.4 X10'3 (0-0.9); MONOCYTES % (AUTO) 13.1 % (2-12); NEUTROPHILS # (AUTO) 7.5 X10'3 (1.8-7.7); NEUTROPHILS % (AUTO) 71.5 % (42-75); PLATELET COUNT 264 X10'3 (140-440); RED BLOOD COUNT 2.62 X10'6 (4.20-5.60); RED CELL DISTRIBUTION WIDTH 15.6 % (11.5-14.5); WHITE BLOOD COUNT 10.6 X10'3 (4.5-11.0)
[2019-04-27 06:59] LABS: ANION GAP 11 (8-16); BLOOD UREA NITROGEN 13 MG/DL (7-18); BUN/CREATININE RATIO 22.8 (6.6-38.0); CALCIUM 7.8 MG/DL (8.5-10.1); CHLORIDE 109 MMOL/L (99-107); CREATININE 0.57 MG/DL (0.40-0.90); GLUCOSE 88 MG/DL (70-104); MAGNESIUM 1.6 MG/DL (1.5-2.4); POTASSIUM 3.6 MMOL/L (3.5-5.1); SODIUM 143 MMOL/L (135-145); TOTAL CARBON DIOXIDE 23.3 MMOL/L (24-32); eGFR > 90 ML/MIN
[2019-04-27] MEDS: K and/or MAG REPLACEMENT MC SCH (08:00)
[2019-04-27] MEDS: lactobacillus rhamnosus 10,000 MMU CELLS/CAPSULE PO SCH (08:10)
[2019-04-27] MEDS: venlafaxine XR 75mg capsule (Q24H) PO SCH (08:11)
[2019-04-27] MEDS: gabapentin 300mg capsule PO SCH ×2 (08:11→12:54)
[2019-04-27] MEDS: naproxen 500mg tablet PO SCH (08:11)
[2019-04-27] MEDS: magnesium hydroxide 30ml (MOM) UD suspension PO PRN (08:12)
[2019-04-27] MEDS: enoxaparin 30mg/0.3ml syringe SUBCUT SCH (08:12)
[2019-04-27 10:00] VITALS: BP 108/48
[2019-04-27] MEDS: levoFLOXACIN 500mg tablet PO SCH (10:39)
[2019-04-27] MEDS: LORazepam 0.5 MG tablet PO PRN (10:39)
--- NOTE | 2019-04-27 14:00 | NUR ---
Student documentation: I have reviewed and agree with all interventions, assessments performed and documented by ELIECER ROBLES. Student Medication Administration: For this medication-pass time frame, all medication were reviewed, dispensed, administered and documented per hospital policy by ELIECER ROBLES.
[2019-04-27 15:36] LABS: OCCULT BLOOD STOOL NEGATIVE (Neg)
== END 2019-04-27 14:48 | DRG 493 ==
LOC: ER 22:17 → ED HOLD 04-23 00:55 → ORTHO 4S 04-23 01:44
PROVIDERS: ADMIT Internal Medicine; ATTEND Family Medicine
PROC: 0QHH06Z Insertion of Intramedullary Internal Fixation Device into Left Tibia, Open Approach (ICD-10-PCS; 2019-04-24)
PROC: 0QSH04Z Reposition Left Tibia with Internal Fixation Device, Open Approach (ICD-10-PCS; principal; 2019-04-24 14:38)
DX: S82.142A Displaced bicondylar fracture of left tibia, initial encounter for closed fracture (principal); D62 Acute posthemorrhagic anemia; S82.242A Displaced spiral fracture of shaft of left tibia, initial encounter for closed fracture; F17.210 Nicotine dependence, cigarettes, uncomplicated; F12.90 Cannabis use, unspecified, uncomplicated; F41.8 Other specified anxiety disorders; G62.9 Polyneuropathy, unspecified; K57.90 Diverticulosis of intestine, part unspecified, without perforation or abscess without bleeding; W01.0XXA Fall on same level from slipping, tripping and stumbling without subsequent striking against object, initial encounter; G89.29 Other chronic pain; Z60.2 Problems related to living alone; G47.00 Insomnia, unspecified; K21.9 Gastro-esophageal reflux disease without esophagitis; M19.90 Unspecified osteoarthritis, unspecified site; M54.9 Dorsalgia, unspecified; I10 Essential (primary) hypertension; J43.9 Emphysema, unspecified; M81.0 Age-related osteoporosis without current pathological fracture; Z85.3 Personal history of malignant neoplasm of breast; Z87.442 Personal history of urinary calculi; Y93.89 Activity, other specified; Y92.89 Other specified places as the place of occurrence of the external cause; Y99.8 Other external cause status; Z88.1 Allergy status to other antibiotic agents; Z79.899 Other long term (current) drug therapy
CPT/HCPCS: 36415; 51702; 70450; 71045; 73564; 73590; 73700; 76000; 80048; 80053; 81001; 82272; 83735; 85025; 85610; 85730; 86885; 86900; 86901; 87077; 87081; 87088; 87186; 93005; 96374; 96375; 97116; 97161; 97530; 99285; A4215; A6222; A6446; A6449; A7000; C1713; G0378; J1170; J1650; J1956; J2060; J2250; J2270; J2405; J3010; J3490; J7030; J7120

== ENCOUNTER 2021-01-08 11:22 | Emergency (ER) | payer MEDICARE, MEDICAID ==
[~2021-01-08] VITALS: Ht 170.2 cm; Wt 68.2 kg
[~2021-01-08 11:22] MED LIST changes: +GABA-532 PO; -GABA-534 PO; -GABA100C PO; +HYDR-3965 PO; -HYDR-3972 PO; -LIDO700A47 TP; +LISI-790 PO; +MIRT-87 PO; -MIRT15TA8 PO; +NAPR-56 PO; -NAPR220T67 PO; -NICO-631 TD; -VENL150T3 PO; +VENL25TA48 PO
--- NOTE | 2021-01-08 12:22 | NUR ---
PATIENT IS REQUESTING BLANKETS AND TO GO HOME.
--- NOTE | 2021-01-08 12:54 | NUR ---
PT TO BEDSIDE COMMODE WITH NO DIFFICULTY
[2021-01-08] MEDS ORDERED: normal saline 1000ML IV soln IVB ONE (13:25)
[2021-01-08 14:31] LABS: ALANINE AMINOTRANSFERASE 20 U/L (12-78); ALBUMIN/GLOBULIN RATIO 0.8 (1.1-1.5); ALKALINE PHOSPHATASE 134 IU/L (46-116); ANION GAP 12 (8-16); BILIRUBIN,TOTAL 0.4 MG/DL (0.1-1.0); BLOOD UREA NITROGEN 7 MG/DL (7-18); BUN/CREATININE RATIO 14.9 (6.6-38.0); CALCIUM 8.2 MG/DL (8.5-10.1); CHLORIDE 110 MMOL/L (99-107); CREATININE 0.47 MG/DL (0.40-0.90); GLUCOSE 69 MG/DL (70-104); SODIUM 144 MMOL/L (135-145); TOTAL CARBON DIOXIDE 21.8 MMOL/L (24-32); TOTAL PROTEIN 6.7 G/DL (6.4-8.2); eGFR > 90 ML/MIN
[2021-01-08 14:40] LABS: ASPARTATE AMINO TRANSFERASE 29 U/L (10-37)
[2021-01-08 14:41] LABS: POTASSIUM 4.1 MMOL/L (3.5-5.1)
[2021-01-08 15:20] LABS: BASOPHILS # (AUTO) 0.1 X10'3 (0-0.2); BASOPHILS % (AUTO) 1.2 % (0-1); EOSINOPHILS # (AUTO) 0.3 X10'3 (0-0.9); EOSINOPHILS % (AUTO) 5.5 % (0-6); HEMATOCRIT 31.9 % (35.0-45.0); HEMOGLOBIN 10.4 g/dl (12.0-16.0); LYMPHOCYTES # (AUTO) 2.1 X10'3 (1.1-4.8); LYMPHOCYTES % (AUTO) 39.5 % (21-51); MEAN CORPUSCULAR HGB CONC 32.5 g/dL (33.0-36.5); MEAN CORPUSCULAR VOLUME 82.9 FL (78-98); MEAN PLATELET VOLUME 7.9 FL (7.4-10.4); MONOCYTES # (AUTO) 0.4 X10'3 (0-0.9); MONOCYTES % (AUTO) 6.7 % (2-12); NEUTROPHILS # (AUTO) 2.5 X10'3 (1.8-7.7); NEUTROPHILS % (AUTO) 47.1 % (42-75); PLATELET COUNT 407 X10'3 (140-440); RED BLOOD COUNT 3.85 X10'6 (4.20-5.60); RED CELL DISTRIBUTION WIDTH 17.9 % (11.5-14.5); WHITE BLOOD COUNT 5.2 X10'3 (4.5-11.0)
[2021-01-08 16:30] VITALS: BP 152/87
--- NOTE | 2021-01-08 16:31 | NUR ---
PATIENT CONTINUES TO VERBALIZED "I WANT MY PANTS" "SOMEONE STOLE MY NORCO" "WHERE ARE MY GLASSES" "YOU MEDICATED ME" "I WANT TO GO HOME." SHE GETS OUT OF BED TO COMMODE WITHOUT ASSISTANCE. SHE ABLE TO AMBULATE IN HALLWAY WITH ASSISTANCE BUT BEGAN TO REFUSE TO WALK DUE TO BEHAVIORAL ISSUES. SHE CONTINUES TO REFUSE CARE AND REPEATEDLY ASKS "WHERE ARE MY PANTS AND I WANT TO GO HOME." DC TRANSPORTATION SETUP THROUGH [facility].
== END 2021-01-08 17:35 | disposition home or self-care (01) ==
LOC: ER 11:22
DX: R41.0 Disorientation, unspecified (principal); J43.9 Emphysema, unspecified; K21.9 Gastro-esophageal reflux disease without esophagitis; M19.90 Unspecified osteoarthritis, unspecified site; G89.29 Other chronic pain; F41.9 Anxiety disorder, unspecified; F32.9 Major depressive disorder, single episode, unspecified; F17.200 Nicotine dependence, unspecified, uncomplicated; Z87.442 Personal history of urinary calculi; Z87.440 Personal history of urinary (tract) infections; Z85.3 Personal history of malignant neoplasm of breast; Z72.89 Other problems related to lifestyle; Z60.2 Problems related to living alone; Z88.1 Allergy status to other antibiotic agents; Z79.899 Other long term (current) drug therapy
CPT/HCPCS: 36415; 71045; 80053; 85025; 96360; 96361; 99284; J7030

== ENCOUNTER 2023-07-10 12:32 | Inpatient (IN) | payer BC, MEDICAID ==
[~2023-07-10] VITALS: Ht 165.1 cm; Wt 56.4 kg
[~2023-07-10 12:32] MED LIST changes: -LISI-790 PO; +LISI5TAB22 PO
[2023-07-10] MEDS: morphine 2 MG/ML inj. syringe IV PRN (13:46)
[2023-07-10] MEDS: normal saline 1000ml 1,000 ML IV ONE (13:47)
[2023-07-10 15:09] LABS: BASOPHILS % (AUTO) 0.2 % (0-1); EOSINOPHILS % (AUTO) 0 % (0-6); HEMATOCRIT 40.5 % (35.0-45.0); HEMOGLOBIN 13.6 g/dl (12.0-16.0); LYMPHOCYTES # (AUTO) 0.4 X10'3 (1.1-4.8); LYMPHOCYTES % (AUTO) 5.3 % (21-51); MEAN CORPUSCULAR HEMOGLOBIN 30.9 PG (27.0-31.0); MEAN CORPUSCULAR HGB CONC 33.5 g/dL (33.0-36.5); MEAN CORPUSCULAR VOLUME 92.2 FL (78-98); MONOCYTES % (AUTO) 13.3 % (2-12); NEUTROPHILS # (AUTO) 5.8 X10'3 (1.8-7.7); NEUTROPHILS % (AUTO) 81.2 % (42-75); PLATELET COUNT 204 X10'3 (140-440); RED BLOOD COUNT 4.39 X10'6 (4.20-5.60); RED CELL DISTRIBUTION WIDTH 14.2 % (11.5-14.5); WHITE BLOOD COUNT 7.2 X10'3 (4.5-11.0)
[2023-07-10 15:22] LABS: APTT 30 SECONDS (22-32); PROTHROMBIN TIME 10.4 SECONDS (9.0-12.0)
[2023-07-10 15:29] LABS: ALBUMIN 3.2 G/DL (3.4-5.0); ANION GAP 7 (8-16); BLOOD UREA NITROGEN 13 MG/DL (7-18); CALCIUM 8.3 MG/DL (8.5-10.1); CHLORIDE 101 MMOL/L (99-107); CREATININE 0.59 MG/DL (0.40-0.90); GLUCOSE 99 MG/DL (70-104); POTASSIUM 3.6 MMOL/L (3.5-5.1); SODIUM 133 MMOL/L (135-145); TOTAL CARBON DIOXIDE 25.2 MMOL/L (24-32); eCRCL 77 ML/MIN; eGFR > 90 ML/MIN
[2023-07-10 15:30] LABS: ETHANOL < 10 MG/DL (<10)
[2023-07-10] MEDS ORDERED: haloperidol lactate 5mg/ml inj IM PRN (16:30)
[2023-07-10] MEDS ORDERED: potassium Cl 40MEQ/1/2NS 520ml 520 ML IV PRN (16:30)
[2023-07-10] MEDS ORDERED: ondansetron/PF 4mg/2ml inj IV PRN (16:30)
[2023-07-10] MEDS ORDERED: HYDROmorphone/PF 0.2 MG/ML SYRINGE IV PRN (16:30)
[2023-07-10] MEDS ORDERED: hydrALAZINE 20mg/ml inj. IV PRN (16:30)
[2023-07-10] MEDS ORDERED: magnesium 2GM in 50ml NS 50 ML IV PRN (16:30)
[2023-07-10] MEDS ORDERED: bisacodyl 10mg suppository rectal RC PRN (16:30)
[2023-07-10] MEDS ORDERED: ipratropium/albuterol 3ml nebule NEB PRN (16:30)
[2023-07-10] MEDS ORDERED: magnesium 4gm in 100ml NS 100 ML IV PRN (16:30)
[2023-07-10] MEDS ORDERED: HYDROcodone/acetaminophen 5mg/325mg tablet PO PRN (16:30)
[2023-07-10] MEDS ORDERED: albuterol 2.5 MG/3 ML nebule NEB PRN (16:30)
[2023-07-10] MEDS ORDERED: acetaminophen 325mg tablet PO PRN ×2 (16:30)
[2023-07-10] MEDS ORDERED: potassium Cl 20 mEq SR tablet PO PRN (16:30)
[2023-07-10] MEDS ORDERED: haloperidol 5mg tablet PO PRN (16:30)
[2023-07-10] MEDS: normal saline 1000ml 1,000 ML IV SCH (17:08)
[2023-07-10] MEDS: metoprolol tartrate 50mg tablet PO ONE (17:13)
[2023-07-10] MEDS: HYDROmorphone inj. 0.5 MG/0.5 ML DISP.SYRIN IV PRN (17:17)
[2023-07-10 17:47] VITALS: PULSE 130; RESP 17; O2SAT 96
[2023-07-10 19:15] VITALS: PULSE 123; RESP 18; O2SAT 96
[2023-07-10] MEDS: K and/or MAG REPLACEMENT MC SCH (19:34)
[2023-07-10] MEDS: docusate sod 100mg capsule PO SCH (19:35)
[2023-07-10] MEDS: HYDROcodone/acetaminophen 10/325mg tab PO PRN (19:52)
[2023-07-10] MEDS: thiamine 100mg tablet PO SCH (19:53)
[2023-07-10 21:02] LABS: URINE AMPHETAMINE SCREEN NEGATIVE (Neg); URINE BENZODIAZEPINES SCREEN NEGATIVE (Neg); URINE CANNABINOID SCREEN NEGATIVE (Neg); URINE COCAINE SCREEN NEGATIVE (Neg); URINE METHADONE SCREEN NEGATIVE (Neg); URINE OPIATE SCREEN POSITIVE (Neg); URINE PHENCYCLIDINE SCREEN NEGATIVE (Neg)
[2023-07-10 21:12] LABS: URINE BARBITUATE SCREEN NEGATIVE (Neg)
[2023-07-11] MEDS: heparin, porcine 5000 units/ml vial SQ SCH
[2023-07-11 04:05] LABS: PROTHROMBIN TIME 11.1 SECONDS (9.0-12.0)
[2023-07-11 04:09] LABS: BASOPHILS % (AUTO) 0.3 % (0-1); EOSINOPHILS # (AUTO) 0.1 X10'3 (0-0.9); EOSINOPHILS % (AUTO) 1.2 % (0-6); HEMATOCRIT 39.8 % (35.0-45.0); HEMOGLOBIN 13.4 g/dl (12.0-16.0); LYMPHOCYTES # (AUTO) 0.9 X10'3 (1.1-4.8); LYMPHOCYTES % (AUTO) 9.3 % (21-51); MEAN CORPUSCULAR HEMOGLOBIN 31.1 PG (27.0-31.0); MEAN CORPUSCULAR HGB CONC 33.7 g/dL (33.0-36.5); MEAN CORPUSCULAR VOLUME 92.4 FL (78-98); MEAN PLATELET VOLUME 8.4 FL (7.4-10.4); MONOCYTES # (AUTO) 1.4 X10'3 (0-0.9); MONOCYTES % (AUTO) 15.7 % (2-12); NEUTROPHILS # (AUTO) 6.8 X10'3 (1.8-7.7); NEUTROPHILS % (AUTO) 73.5 % (42-75); PLATELET COUNT 200 X10'3 (140-440); RED BLOOD COUNT 4.31 X10'6 (4.20-5.60); RED CELL DISTRIBUTION WIDTH 14.5 % (11.5-14.5); WHITE BLOOD COUNT 9.2 X10'3 (4.5-11.0)
[2023-07-11 04:12] LABS: ALANINE AMINOTRANSFERASE 27 U/L (12-78); ALBUMIN 2.7 G/DL (3.4-5.0); ALBUMIN/GLOBULIN RATIO 0.8 (1.1-1.5); ALKALINE PHOSPHATASE 147 IU/L (46-116); ANION GAP 9 (8-16); ASPARTATE AMINO TRANSFERASE 35 U/L (10-37); BILIRUBIN,TOTAL 0.9 MG/DL (0.1-1.0); BLOOD UREA NITROGEN 9 MG/DL (7-18); BUN/CREATININE RATIO 15.8 (10.0-20.0); CALCIUM 7.2 MG/DL (8.5-10.1); CHLORIDE 104 MMOL/L (99-107); CREATININE 0.57 MG/DL (0.40-0.90); GLUCOSE 90 MG/DL (70-104); LIPASE 11 U/L (16-77); MAGNESIUM 1.7 MG/DL (1.5-2.4); PHOSPHORUS 2.7 MG/DL (2.3-4.5); POTASSIUM 3.6 MMOL/L (3.5-5.1); SODIUM 136 MMOL/L (135-145); TOTAL CARBON DIOXIDE 22.8 MMOL/L (24-32); TOTAL PROTEIN 6.3 G/DL (6.4-8.2); eCRCL 79 ML/MIN; eGFR > 90 ML/MIN
[2023-07-11 04:57] LABS: PLATELET ESTIMATE NORMAL; TOTAL CELLS COUNTED 100
[2023-07-11 05:01] LABS: ELLIPTOCYTES FEW; POIKILOCYTOSIS FEW
[2023-07-11] MEDS: multivitamins, therapeutics tablet PO SCH (08:00)
[2023-07-11] MEDS: nicotine 14mg patch - 24hr TD SCH (11:03)
[2023-07-11] MEDS ORDERED: MELA10TA2 PO (12:38)
[2023-07-11] MEDS ORDERED: CYCL-394 PO (13:51)
[2023-07-11 14:00] VITALS: RESP 18; O2SAT 95
[2023-07-11 14:30] VITALS: BP 107/58; PULSE 113; RESP 16; TEMP 97.8; O2SAT 95
[2023-07-11 18:00] VITALS: BP 139/52; PULSE 110; RESP 16; TEMP 98; O2SAT 96
[2023-07-11] MEDS: cyclobenzaprine 10mg tablet PO PRN (19:07)
[2023-07-11] MEDS: traMADol 50MG tablet PO PRN (19:08)
[2023-07-11 20:00] VITALS: RESP 16; O2SAT 96
[2023-07-11] MEDS: LORazepam 2 mg/ml vial IV PRN (20:04)
[2023-07-11 22:00] VITALS: BP 138/56; PULSE 120; RESP 24; TEMP 97.6; O2SAT 95
[2023-07-11 23:36] VITALS: PULSE 113; RESP 16; O2SAT 98
[2023-07-12] VITALS (7 sets, daily range): BP systolic 123–138; BP diastolic 54–109; PULSE 116–124; RESP 16–20; TEMP 98–98.7; O2SAT 95–97
[2023-07-12 06:59] LABS: BASOPHILS % (AUTO) 0.3 % (0-1); EOSINOPHILS # (AUTO) 0.2 X10'3 (0-0.9); EOSINOPHILS % (AUTO) 2.5 % (0-6); HEMOGLOBIN 11.9 g/dl (12.0-16.0); LYMPHOCYTES # (AUTO) 0.8 X10'3 (1.1-4.8); LYMPHOCYTES % (AUTO) 12.5 % (21-51); MEAN CORPUSCULAR HEMOGLOBIN 31.1 PG (27.0-31.0); MEAN CORPUSCULAR HGB CONC 33.1 g/dL (33.0-36.5); MEAN CORPUSCULAR VOLUME 93.8 FL (78-98); MEAN PLATELET VOLUME 8.8 FL (7.4-10.4); MONOCYTES # (AUTO) 1.2 X10'3 (0-0.9); MONOCYTES % (AUTO) 18.3 % (2-12); NEUTROPHILS # (AUTO) 4.5 X10'3 (1.8-7.7); NEUTROPHILS % (AUTO) 66.4 % (42-75); PLATELET COUNT 177 X10'3 (140-440); RED BLOOD COUNT 3.84 X10'6 (4.20-5.60); RED CELL DISTRIBUTION WIDTH 14.1 % (11.5-14.5); WHITE BLOOD COUNT 6.7 X10'3 (4.5-11.0)
[2023-07-12 07:11] LABS: PROTHROMBIN TIME 10.9 SECONDS (9.0-12.0)
[2023-07-12 07:18] LABS: ALANINE AMINOTRANSFERASE 26 U/L (12-78); ALBUMIN 2.4 G/DL (3.4-5.0); ALBUMIN/GLOBULIN RATIO 0.7 (1.1-1.5); ALKALINE PHOSPHATASE 150 IU/L (46-116); ANION GAP 9 (8-16); ASPARTATE AMINO TRANSFERASE 28 U/L (10-37); BLOOD UREA NITROGEN 9 MG/DL (7-18); BUN/CREATININE RATIO 21.4 (10.0-20.0); CALCIUM 7.7 MG/DL (8.5-10.1); CHLORIDE 107 MMOL/L (99-107); CREATININE 0.42 MG/DL (0.40-0.90); GLUCOSE 71 MG/DL (70-104); LIPASE 12 U/L (16-77); MAGNESIUM 1.7 MG/DL (1.5-2.4); PHOSPHORUS 1.8 MG/DL (2.3-4.5); POTASSIUM 3.2 MMOL/L (3.5-5.1); SODIUM 138 MMOL/L (135-145); TOTAL CARBON DIOXIDE 21.6 MMOL/L (24-32); eCRCL 108 ML/MIN; eGFR > 90 ML/MIN
[2023-07-12 07:33] LABS: TOTAL CELLS COUNTED 100
[2023-07-12 07:34] LABS: PLATELET ESTIMATE NORMAL
[2023-07-12] MEDS ORDERED: chlordiazePOXIDE 25mg capsule PO PRN (07:55)
[2023-07-12] MEDS ORDERED: LORazepam 1 MG tablet PO PRN (16:30)
[2023-07-12] MEDS ORDERED: LORazepam 2 mg/ml vial IV PRN (16:30)
[2023-07-12] MEDS: lactose-reduced food (Ensure Enlive) - 237ml bottle PO SCH (18:00)
[2023-07-12] MEDS: potassium Cl 20 mEq SR tablet PO PRN (18:06)
[2023-07-13] VITALS (7 sets, daily range): BP systolic 118–153; BP diastolic 60–102; PULSE 101–114; RESP 16–20; TEMP 97.6–98.2; O2SAT 92–97
[2023-07-13] MEDS: piperacillin/tazo 4.5gm/100ml 100 ML IV SCH (00:10)
[2023-07-13] MEDS: mag hydrox/Alum hydrox/simeth 30ml oral suspension PO PRN (00:22)
[2023-07-13 07:20] LABS: BASOPHILS % (AUTO) 0.6 % (0-1); EOSINOPHILS # (AUTO) 0.2 X10'3 (0-0.9); HEMATOCRIT 32.2 % (35.0-45.0); HEMOGLOBIN 10.8 g/dl (12.0-16.0); LYMPHOCYTES # (AUTO) 1.1 X10'3 (1.1-4.8); LYMPHOCYTES % (AUTO) 17.4 % (21-51); MEAN CORPUSCULAR HEMOGLOBIN 31.1 PG (27.0-31.0); MEAN CORPUSCULAR HGB CONC 33.6 g/dL (33.0-36.5); MEAN CORPUSCULAR VOLUME 92.5 FL (78-98); MEAN PLATELET VOLUME 9.3 FL (7.4-10.4); MONOCYTES # (AUTO) 1.2 X10'3 (0-0.9); MONOCYTES % (AUTO) 19.1 % (2-12); NEUTROPHILS # (AUTO) 3.7 X10'3 (1.8-7.7); NEUTROPHILS % (AUTO) 59.9 % (42-75); PLATELET COUNT 214 X10'3 (140-440); RED BLOOD COUNT 3.49 X10'6 (4.20-5.60); RED CELL DISTRIBUTION WIDTH 14.1 % (11.5-14.5); WHITE BLOOD COUNT 6.2 X10'3 (4.5-11.0)
[2023-07-13 07:29] LABS: PROTHROMBIN TIME 10.5 SECONDS (9.0-12.0)
[2023-07-13 07:52] LABS: ALANINE AMINOTRANSFERASE 25 U/L (12-78); ALBUMIN 2.3 G/DL (3.4-5.0); ALBUMIN/GLOBULIN RATIO 0.7 (1.1-1.5); ALKALINE PHOSPHATASE 146 IU/L (46-116); ANION GAP 9 (8-16); ASPARTATE AMINO TRANSFERASE 22 U/L (10-37); BILIRUBIN,TOTAL 1.1 MG/DL (0.1-1.0); BLOOD UREA NITROGEN 10 MG/DL (7-18); BUN/CREATININE RATIO 23.3 (10.0-20.0); CALCIUM 7.8 MG/DL (8.5-10.1); CHLORIDE 106 MMOL/L (99-107); CREATININE 0.43 MG/DL (0.40-0.90); GLUCOSE 88 MG/DL (70-104); LIPASE 16 U/L (16-77); MAGNESIUM 1.7 MG/DL (1.5-2.4); POTASSIUM 3.6 MMOL/L (3.5-5.1); SODIUM 136 MMOL/L (135-145); TOTAL CARBON DIOXIDE 21.3 MMOL/L (24-32); TOTAL PROTEIN 5.8 G/DL (6.4-8.2); eCRCL 105 ML/MIN; eGFR > 90 ML/MIN
[2023-07-13 08:30] LABS: TOTAL CELLS COUNTED 100
[2023-07-13 09:05] LABS: PLATELET ESTIMATE NORMAL
[2023-07-13] MEDS: VANCOMYCIN 1,500MG in normal saline IV soln 300 ML IV ONE (16:08)
[2023-07-14] VITALS (7 sets, daily range): BP systolic 98–135; BP diastolic 60–82; PULSE 93–119; RESP 15–20; TEMP 97.6–98.2; O2SAT 92–97
[2023-07-14] MEDS: vancomycin/NS 1 GM ADD-VANTAGE 250 ML IV SCH (05:38)
[2023-07-14 08:39] LABS: BASOPHILS % (AUTO) 0.6 % (0-1); EOSINOPHILS # (AUTO) 0.2 X10'3 (0-0.9); EOSINOPHILS % (AUTO) 2.5 % (0-6); HEMATOCRIT 37.1 % (35.0-45.0); HEMOGLOBIN 12.3 g/dl (12.0-16.0); LYMPHOCYTES # (AUTO) 1.2 X10'3 (1.1-4.8); LYMPHOCYTES % (AUTO) 15.1 % (21-51); MEAN CORPUSCULAR HEMOGLOBIN 30.7 PG (27.0-31.0); MEAN CORPUSCULAR HGB CONC 33.1 g/dL (33.0-36.5); MEAN CORPUSCULAR VOLUME 92.8 FL (78-98); MEAN PLATELET VOLUME 8.6 FL (7.4-10.4); MONOCYTES # (AUTO) 1.4 X10'3 (0-0.9); MONOCYTES % (AUTO) 18.1 % (2-12); NEUTROPHILS # (AUTO) 4.9 X10'3 (1.8-7.7); NEUTROPHILS % (AUTO) 63.7 % (42-75); PLATELET COUNT 256 X10'3 (140-440); RED CELL DISTRIBUTION WIDTH 14.2 % (11.5-14.5); WHITE BLOOD COUNT 7.8 X10'3 (4.5-11.0)
[2023-07-14 08:48] LABS: PROTHROMBIN TIME 10.4 SECONDS (9.0-12.0)
[2023-07-14 11:03] LABS: ALANINE AMINOTRANSFERASE 24 U/L (12-78); ALBUMIN 2.6 G/DL (3.4-5.0); ALBUMIN/GLOBULIN RATIO 0.6 (1.1-1.5); ALKALINE PHOSPHATASE 169 IU/L (46-116); ANION GAP 12 (8-16); ASPARTATE AMINO TRANSFERASE 20 U/L (10-37); BILIRUBIN,TOTAL 1.1 MG/DL (0.1-1.0); BLOOD UREA NITROGEN 9 MG/DL (7-18); CALCIUM 8.7 MG/DL (8.5-10.1); CHLORIDE 105 MMOL/L (99-107); GLUCOSE 92 MG/DL (70-104); LIPASE 15 U/L (16-77); MAGNESIUM 1.5 MG/DL (1.5-2.4); PHOSPHORUS 3.1 MG/DL (2.3-4.5); POTASSIUM 3.8 MMOL/L (3.5-5.1); SODIUM 139 MMOL/L (135-145); TOTAL CARBON DIOXIDE 21.6 MMOL/L (24-32); TOTAL PROTEIN 6.7 G/DL (6.4-8.2); eCRCL 91 ML/MIN; eGFR > 90 ML/MIN
[2023-07-14] MEDS ORDERED: LORazepam 2 mg/ml vial IV PRN (16:30)
[2023-07-14] MEDS ORDERED: LORazepam 1 MG tablet PO PRN (16:30)
[2023-07-15 03:09] VITALS: PULSE 100; RESP 18; O2SAT 94
[2023-07-15 04:11] LABS: BASOPHILS % (AUTO) 0.5 % (0-1); EOSINOPHILS # (AUTO) 0.2 X10'3 (0-0.9); EOSINOPHILS % (AUTO) 2.2 % (0-6); HEMATOCRIT 31.9 % (35.0-45.0); HEMOGLOBIN 10.9 g/dl (12.0-16.0); LYMPHOCYTES # (AUTO) 1.6 X10'3 (1.1-4.8); LYMPHOCYTES % (AUTO) 19.4 % (21-51); MEAN CORPUSCULAR HEMOGLOBIN 31.6 PG (27.0-31.0); MEAN CORPUSCULAR HGB CONC 34.3 g/dL (33.0-36.5); MEAN CORPUSCULAR VOLUME 92.2 FL (78-98); MEAN PLATELET VOLUME 8.2 FL (7.4-10.4); MONOCYTES # (AUTO) 1.4 X10'3 (0-0.9); NEUTROPHILS # (AUTO) 4.9 X10'3 (1.8-7.7); NEUTROPHILS % (AUTO) 60.9 % (42-75); PLATELET COUNT 282 X10'3 (140-440); RED BLOOD COUNT 3.45 X10'6 (4.20-5.60); RED CELL DISTRIBUTION WIDTH 14.2 % (11.5-14.5)
[2023-07-15] MEDS: VANCOMYCIN LEVEL IJ ONE (04:12)
[2023-07-15 04:20] LABS: PROTHROMBIN TIME 10.8 SECONDS (9.0-12.0)
[2023-07-15 04:24] LABS: ALANINE AMINOTRANSFERASE 31 U/L (12-78); ALBUMIN 2.6 G/DL (3.4-5.0); ALBUMIN/GLOBULIN RATIO 0.7 (1.1-1.5); ALKALINE PHOSPHATASE 194 IU/L (46-116); ASPARTATE AMINO TRANSFERASE 21 U/L (10-37); BILIRUBIN,TOTAL 0.8 MG/DL (0.1-1.0); BLOOD UREA NITROGEN 18 MG/DL (7-18); BUN/CREATININE RATIO 36.7 (10.0-20.0); CALCIUM 8.5 MG/DL (8.5-10.1); CHLORIDE 107 MMOL/L (99-107); CREATININE 0.49 MG/DL (0.40-0.90); GLUCOSE 102 MG/DL (70-104); LIPASE 14 U/L (16-77); MAGNESIUM 1.8 MG/DL (1.5-2.4); PHOSPHORUS 4.3 MG/DL (2.3-4.5); POTASSIUM 3.7 MMOL/L (3.5-5.1); SODIUM 141 MMOL/L (135-145); TOTAL PROTEIN 6.1 G/DL (6.4-8.2); VANCOMYCIN,TROUGH 12.7 ug/mL (10.0-20.0); eCRCL 92 ML/MIN; eGFR > 90 ML/MIN
[2023-07-15] MEDS: folic acid 1mg tablet PO SCH (07:50)
[2023-07-15 09:15] VITALS: BP 124/89; PULSE 118; RESP 18; TEMP 98.1; O2SAT 96
[2023-07-15 11:44] VITALS: PULSE 112; RESP 16; O2SAT 94
[2023-07-15 14:21] LABS: TOTAL CARBON DIOXIDE 25.1 MMOL/L (24-32)
[2023-07-15 14:22] LABS: ANION GAP 9 (8-16)
[2023-07-15 18:00] VITALS: BP 142/68; PULSE 109; RESP 20; TEMP 98.3; O2SAT 95
[2023-07-15 20:00] VITALS: RESP 18; O2SAT 94
[2023-07-15] MEDS: metoprolol tartrate 12.5mg (1/2 tablet) PO SCH (20:00)
[2023-07-15 22:00] VITALS: BP 120/87; PULSE 111; RESP 18; TEMP 97.8; O2SAT 95
[2023-07-15] MEDS: VANCOmycin 1250MG/NS 250ml Bag 250 ML IV SCH (22:17)
[2023-07-16 00:19] VITALS: PULSE 117; RESP 16; O2SAT 95
[2023-07-16 07:47] VITALS: PULSE 107; RESP 16; O2SAT 92
[2023-07-16 09:09] VITALS: BP_SYST 133; PULSE 114; RESP 18
[2023-07-16] MEDS ORDERED: NICO-631 TD (11:39)
[2023-07-16] MEDS ORDERED: LOP12.5T PO (11:39)
[2023-07-17] MEDS ORDERED: VANCOMYCIN LEVEL IV ONE (03:30)
== END 2023-07-16 12:55 | disposition home or self-care (01) | DRG 562 ==
LOC: ER 12:33 → ED HOLD 16:37 → ORTHO 4S 07-11 16:35
PROVIDERS: ADMIT Family Medicine; ATTEND Family Medicine
PROC: 2W3MX1Z Immobilization of Left Lower Extremity using Splint (ICD-10-PCS; principal; 2023-07-10)
PROC: 05HB33Z Insertion of Infusion Device into Right Basilic Vein, Percutaneous Approach (ICD-10-PCS; 2023-07-14)
PROC: B54MZZA Ultrasonography of Right Upper Extremity Veins, Guidance (ICD-10-PCS; 2023-07-14)
PROC: CP1D1ZZ Planar Nuclear Medicine Imaging of Left Lower Extremity using Technetium 99m (Tc-99m) (ICD-10-PCS; 2023-07-15)
DX: S82.302A Unspecified fracture of lower end of left tibia, initial encounter for closed fracture (principal); E43 Unspecified severe protein-calorie malnutrition; E87.1 Hypo-osmolality and hyponatremia; S82.832A Other fracture of upper and lower end of left fibula, initial encounter for closed fracture; F10.10 Alcohol abuse, uncomplicated; M17.12 Unilateral primary osteoarthritis, left knee; M81.0 Age-related osteoporosis without current pathological fracture; K21.9 Gastro-esophageal reflux disease without esophagitis; F41.9 Anxiety disorder, unspecified; F32.A Depression, unspecified; I10 Essential (primary) hypertension; S00.12XA Contusion of left eyelid and periocular area, initial encounter; F17.210 Nicotine dependence, cigarettes, uncomplicated; J43.9 Emphysema, unspecified; G89.29 Other chronic pain; K57.90 Diverticulosis of intestine, part unspecified, without perforation or abscess without bleeding; E83.51 Hypocalcemia; R00.0 Tachycardia, unspecified; W18.39XA Other fall on same level, initial encounter; Z87.442 Personal history of urinary calculi; Z85.3 Personal history of malignant neoplasm of breast; Z88.1 Allergy status to other antibiotic agents; Z80.1 Family history of malignant neoplasm of trachea, bronchus and lung; Z80.0 Family history of malignant neoplasm of digestive organs; Z99.3 Dependence on wheelchair; Z79.899 Other long term (current) drug therapy; Z87.440 Personal history of urinary (tract) infections; Z68.20 Body mass index [BMI] 20.0-20.9, adult
CPT/HCPCS: 36410; 36415; 70450; 72125; 73502; 73610; 73700; 76937; 78315; 80048; 80053; 80202; 80305; 80320; 83690; 83735; 84100; 84484; 85007; 85025; 85610; 85730; 87070; 87075; 87077; 87081; 87186; 93005; 94760; 97161; 97530; 97535; 97542; 99285; A4615; A6212; A6258; A6449; A9503; C1751; G0378; J1170; J1644; J2060; J2270; J2543; J3370; J7030; J7040

== ENCOUNTER 2023-11-03 10:03 | Emergency (ER) | payer BC, MEDICAID ==
[~2023-11-03] VITALS: Ht 154.9 cm; Wt 59.1 kg
[~2023-11-03 10:03] MED LIST changes: +CYCL-394 PO; -HYDR-3965 PO; -LISI5TAB22 PO; +LOP12.5T PO; +MELA10TA2 PO; +NICO-631 TD; -TRAZ-251 PO; -VENL25TA48 PO
[2023-11-03 10:06] VITALS: BP 131/70; PULSE 110; RESP 20; TEMP 97.5; O2SAT 94
== END 2023-11-03 13:53 | disposition left against medical advice (07) ==
LOC: ER 10:03
DX: M79.672 Pain in left foot (principal); Z53.21 Procedure and treatment not carried out due to patient leaving prior to being seen by health care provider

== ENCOUNTER 2023-11-08 11:33 | Emergency (ER) | payer BC, MEDICAID ==
[~2023-11-08] VITALS: Ht 160 cm; Wt 50.0 kg
[2023-11-08 11:37] VITALS: TEMP 98.6
[2023-11-08] MEDS: piperacillin/tazo 3.375gm/50ml 50 ML IV ONE (13:19)
[2023-11-08] MEDS ORDERED: SULF1TAB49 PO (13:56)
[2023-11-08] MEDS ORDERED: CLAR-69 PO (13:56)
[2023-11-08 15:19] VITALS: BP 164/85; PULSE 98; RESP 14; O2SAT 98
== END 2023-11-08 16:46 | disposition home or self-care (01) ==
LOC: ER 11:34
DX: S91.105A Unspecified open wound of left lesser toe(s) without damage to nail, initial encounter (principal); L03.116 Cellulitis of left lower limb; J44.9 Chronic obstructive pulmonary disease, unspecified; K21.9 Gastro-esophageal reflux disease without esophagitis; M19.90 Unspecified osteoarthritis, unspecified site; G89.29 Other chronic pain; M54.9 Dorsalgia, unspecified; F41.9 Anxiety disorder, unspecified; F32.A Depression, unspecified; Z85.3 Personal history of malignant neoplasm of breast; Z60.2 Problems related to living alone; Z88.1 Allergy status to other antibiotic agents; Z79.899 Other long term (current) drug therapy; Z79.1 Long term (current) use of non-steroidal anti-inflammatories (NSAID); X58.XXXA Exposure to other specified factors, initial encounter; Y93.89 Activity, other specified; Y92.89 Other specified places as the place of occurrence of the external cause; Y99.8 Other external cause status; Z90.89 Acquired absence of other organs; Z88.8 Allergy status to other drugs, medicaments and biological substances
CPT/HCPCS: 73630; 96365; 96366; 99284; J2543

== ENCOUNTER 2024-11-26 19:00 | Emergency (ER) | payer BC, MEDICAID ==
[~2024-11-26] VITALS: Ht 165.1 cm; Wt 52.3 kg
--- NOTE | 2024-11-26 20:08 | Physician Documentation ---
History of Present Illness ~ Chief Complaint: Leg Pain Stated Complaint: WOUND Time Seen by MD: 19:20 Primary Medical Doctor: Ari Arrieta MD HPI 74-year-old female who presents with leg pain. She tells me that she fell about 4 or 5 days ago, and had a wound to the back of her right lower calf. She had kept it bandaged. She had put some antibiotic ointment on it. However, she developed worsening pain and redness, and so she came to get it checked out. No fevers, chills or other infectious symptoms. She usually uses a wheelchair and does not walk. She has a listed allergy to Keflex, but states that this was a long time ago and she does not think she really had a bad reaction to it. Tetanus reportedly up-to-date. Tetanus witin 5 years: Yes Medication Reconciliation Allergies: Coded Allergies: cephalexin (Verified Allergy, Unknown, UNSURE, POSSIBLE RASH, 11/26/24) Scheduled Cyclobenzaprine HCl (Cyclobenzaprine HCl), 1 TAB PO Q8H, (Reported) Gabapentin (Gabapentin), 2 CAP PO TID, (Reported) Melatonin (Melatonin), 1 TAB PO HS, (Reported) Metoprolol Tartrate (Lopressor tablet), 12.5 MG PO BID Mirtazapine (Mirtazapine), 15 MG PO HS Naproxen (Naproxen), 1 TAB PO Q12H, (Reported) Nicotine 14 MG Patch* (Habitrol 14 MG Patch*), 1 PATCH TD DAILY Sulfamethoxazole/Trimethoprim (Bactrim Ds Tablet), 1 TAB PO Q12H Scheduled PRN Cyclobenzaprine* (Cyclobenzaprine*), 1 TAB PO DAILY PRN for muscle spasms Past Medical History Past Medical History: Bronchitis, COPD, Emphysema, Diverticulitis, Diverticulosis, GERD, Kidney Stones, UTI, Arthritis, Chronic Pain, Chronic Back Pain, Extremity Fracture, Osteoporosis, Spine Compression, Basal Cell, Breast Cancer, Anxiety, Depression Past Surgical History: tonsillectomy Patient History: FH: lung cancer MOTHER FH: stomach cancer MOTHER Alcohol Use: Sober Drug Use: none Lives with: Alone Lives In: Home Occupation: disabled Review of Systems Integumentary: Reports: wound(s), change in color Physical Exam Vital Signs: Temperature: 98.6, Source: Oral, Heart Rate: 107, Respiratory Rate: 16, BP: 112/57, Pulse Oximetry: 93, Weight: 52.270 Physical Exam General: This is a thin older female, very talkative, not in distress HEENT: Atraumatic, oropharynx is moist Heart: Mild tachycardic, appears regular Lungs: normal work of breathing, normal oxygen saturation on room air Extremities: Warm and well-perfused Right lower extremity: The patient has a wound in the back of her posterior lower calf, that measures approximately 3 x 3 cm. There is some beefy red erythema surrounding the wound in about a 1 cm band. Streaking redness away from the wound. There is granulation tissue in the wound but no purulent drainage. She is tender to palpation in this region only. Neuro: Alert and oriented Psychiatric: Calm and cooperative with exam, is very talkative, sometimes difficult to redirect Progress Results/Orders Results/Orders Orders - OTIS NOLAND MD General Nursing Order (11/26/24 ) Completed Orders - OTIS NOLAND MD Ceftriaxone Im Kit W/Lidocaine (Rocephin (11/26/24 20:20) Sulfamethox/Trimetho. Ds Tab (Septra Ds (11/26/24 20:20) Acetaminophen 325mg Tablet (Tylenol Tabl (11/26/24 20:25) Cyclobenzaprine Tablet (Flexeril Tablet) (11/26/24 20:25) Vital Signs 11/26/24 11/26/24 19:29 21:15 Temp 98.6 98.6 Pulse 107 99 Resp 16 18 B/P (MAP) 112/57 110/56 Pulse Ox 93 97 Medical Decision Making Additional Comment Differential includes wound, wound infection, abscess, osteomyelitis, sepsis Assessment The patient presents with pain to her leg, and is found to have an infected wound. There was no evidence to suggest abscess, bone involvement, or more dangerous systemic infection. I did offer to do an IV, blood work, and even consider admission, but she declined. Instead, she was given a dose of IM ceftriaxone and will be discharged on Bactrim. She was given wound care instructions including bacitracin and bandages, and was given home care supplies. Return precautions given if she does develop signs of worsening infection, otherwise she will follow up in her primary clinic for re-evaluation. Departure Time of Disposition: 21:05 Disposition: 01 HOME / SELF CARE / HOMELESS Impression: Primary Impression: Cellulitis of leg, right Additional Impression: Leg wound, right Condition: Stable Discharge Instructions: Cellulitis, Adult Referrals: NO PRIMARY CARE PROVIDER (PCP) Prescriptions Cyclobenzaprine* (Cyclobenzaprine*) 10 Mg Tablet 1 TAB PO DAILY PRN for muscle spasms, #10 TAB Prov: OTIS NOLAND MD 11/26/24 Sulfamethoxazole/Trimethoprim (Bactrim Ds Tablet) 800 Mg-160 Mg Tablet 1 TAB PO Q12H for 10 Days, #20 TAB Prov: OTIS NOLAND MD 11/26/24 Education Educated: Patient Educated regarding: diagnosis, treatment, need for follow up Signature Scribe Signature: na Attestation: OTIS Meadows MD Nov 26, 2024 20:07
[2024-11-26] MEDS: CefTRIAXone 1000mg IM Kit (w/lidocaine diluent) IM ONE (20:40)
[2024-11-26] MEDS: sulfamethoxazole/trimethoprim DS (800/160mg) tablet PO ONE (20:41)
[2024-11-26] MEDS ORDERED: SULF1TAB49 PO (21:06)
[2024-11-26] MEDS ORDERED: CYCL-1 PO (21:06)
[2024-11-26 21:15] VITALS: BP 110/56; PULSE 99; RESP 18; TEMP 98.6; O2SAT 97
== END 2024-11-26 21:16 | disposition home or self-care (01) ==
LOC: ER 19:01
DX: S80.921A Unspecified superficial injury of right lower leg, initial encounter (principal); L03.115 Cellulitis of right lower limb; J43.9 Emphysema, unspecified; M19.90 Unspecified osteoarthritis, unspecified site; M81.0 Age-related osteoporosis without current pathological fracture; K21.9 Gastro-esophageal reflux disease without esophagitis; F41.9 Anxiety disorder, unspecified; F32.A Depression, unspecified; Z85.3 Personal history of malignant neoplasm of breast; Z88.1 Allergy status to other antibiotic agents; Z88.8 Allergy status to other drugs, medicaments and biological substances; Z90.89 Acquired absence of other organs; X58.XXXA Exposure to other specified factors, initial encounter; Y93.89 Activity, other specified; Y92.89 Other specified places as the place of occurrence of the external cause; Y99.8 Other external cause status
CPT/HCPCS: 96372; 99284; A6222; J0696; A6402

== ENCOUNTER 2024-12-18 19:11 | Emergency (ER) | payer BC, MEDICAID ==
[~2024-12-18 19:11] MED LIST changes: +CYCL-1 PO
[2024-12-18 19:26] VITALS: BP 118/95; PULSE 116; RESP 16; TEMP 97.8; O2SAT 96
--- NOTE | 2024-12-18 19:37 | Physician Documentation ---
History of Present Illness ~ General Chief Complaint: Pain Stated Complaint: ALL OVER BODY PAIN Time Seen by MD: 19:35 OK to notify your PCP?: Yes Primary Medical Doctor: Ari Arrieta MD Source: patient, RN/MD, EMS, RN notes reviewed, old records Mode of Arrival: EMS Exam Limitations: no limitations History of Present Illness Initial Comments This patient is a 74 y/o female who presents to ED with multiple chief complaints including back pain and bilateral leg pain. At time of exam patient is refusing all his tests including physical examination, EKG, and chest x-ray. She did admit to EMS personnel that she had ingested vodka as well as marijuana prior to arrival. Medication Reconciliation Allergies: Coded Allergies: cephalexin (Verified Allergy, Unknown, UNSURE, POSSIBLE RASH, 11/26/24) Scheduled Cyclobenzaprine HCl (Cyclobenzaprine HCl), 1 TAB PO Q8H, (Reported) Gabapentin (Gabapentin), 2 CAP PO TID, (Reported) Melatonin (Melatonin), 1 TAB PO HS, (Reported) Metoprolol Tartrate (Lopressor tablet), 12.5 MG PO BID Mirtazapine (Mirtazapine), 15 MG PO HS Naproxen (Naproxen), 1 TAB PO Q12H, (Reported) Nicotine 14 MG Patch* (Habitrol 14 MG Patch*), 1 PATCH TD DAILY Scheduled PRN Cyclobenzaprine* (Cyclobenzaprine*), 1 TAB PO DAILY PRN for muscle spasms Past Medical History Past Medical History: Bronchitis, COPD, Emphysema, Diverticulitis, Diverti culosis, GERD, Kidney Stones, UTI, Arthritis, Chronic Pain, Chronic Back Pain, Extremity Fracture, Osteoporosis, Spine Compression, Basal Cell, Breast Cancer, Anxiety, Depression Past Surgical History: tonsillectomy Patient History: FH: lung cancer MOTHER FH: stomach cancer MOTHER Smoking Status: Unknown if ever smoked Alcohol Use: Sober Drug Use: none Lives with: Alone Lives In: Home Occupation: disabled Review of Systems All Other Systems at this time: Reviewed and Negative Physical Exam Physical Exam Vital Signs: RN Vital Signs have been reviewed: Yes, Temperature: 97.8, Heart Rate: 116, Respiratory Rate: 16, BP: 118/95, Pulse Oximetry: 96 Oxygen Flow Rate: 0 Physical Exam General: The patient is well developed, well nourished, nontoxic appearing and is in no acute distress. Skin: [place], warm and dry with no rashes. HEENT: Head was normocephalic and atraumatic. Eyes - pupils equal, round, reactive to light and accommodation. Extraocular movements were intact. Conjunctivae were nonicteric. Ears - bilateral tympanic membranes were normal. The mouth and oropharynx were clear with moist mucous membranes. There were no pharyngeal exudates or erythema. Neck: Supple and nontender. There was no jugular venous distention, lymphadenopathy, thyromegaly or masses. Chest: Clear to auscultation bilaterally without wheezes, rales or rhonchi. No accessory muscle use. No dullness to percussion. Heart: Rate regular and rhythmic. S1, S2. No murmurs. Palpation of the chest wall was normal. No rubs or thrills. Abdomen: Soft, nontender and nondistended. Positive bowel sounds. No guarding or rebound. No hepatosplenomegaly or palpable masses. Extremities: No cyanosis, clubbing or edema. The patient moves all extremities. Pulses were equal and symmetric. Neurologic: Cranial nerves II-XII were intact. Sensation was intact to light touch throughout. Motor strength was 5/5 in all four extremities. Deep tendon reflexes were intact in both upper and lower extremities. Psychologic: The patient was oriented to person, place and time. The patient demonstrated appropriate judgement and insight. Progress Results/Orders Reviewed/noted all lab results: Yes Results/Orders Vital Signs 12/18/24 19:26 Temp 97.8 Pulse 116 Resp 16 B/P (MAP) 118/95 Pulse Ox 96 O2 Flow Rate 0 Re-Evaluation Re-Evaluation : Re-Evaluation: Unchanged Progress Patient has some alcohol on board she is able to make decisions for herself. Patient is quite rude to staff. Patient wants to go home. She states I did not call the ambulance. Does not want any treatment. She requested a glass of water and a cab patient was then discharged home without workup but did receive a screening exam and appears to be normal without any significant pathology or concerns. However I did not have a EKG and she was complaining of some chest pain but did not elaborate on her history so risk stratification for this patient was challenging. Heart Score: Heart Score Response (Comments) Value History N/A 0 EKG N/A 0 Age >65 2 Risk Factors 1 or 2 risk factors 1 Troponin N/A 0 Total 3 Medical Decision Making Additional info obtained from: old records Departure Time of Disposition: 19:38 Disposition: 01 HOME / SELF CARE / HOMELESS Impression: Primary Impression: Encounter for medical screening examination Condition: Stable Discharge Instructions: Medical Screening Exam Referrals: NO PRIMARY CARE PROVIDER (PCP) Education Educated: Patient Educated regarding: diagnosis, treatment, need for follow up Additional Comment Additional Comment Patient refusing admission, patient refusing labs and EKG wants a glass of water and wants to leave, patient discharged Signature Scribe Signature: Scribed for Carlos Manuel Rhodes MD by Ashley Dow. 12/18/24 19:38 Attestation: The note accurately reflects work and decisions made by me.Carlos Manuel Rhodes MD 12/18/24 19:36 CARLOS MANUEL RHODES MD Dec 18, 2024 19:37
== END 2024-12-18 20:11 | disposition home or self-care (01) ==
LOC: ER 19:11
DX: Z13.9 Encounter for screening, unspecified (principal); M79.604 Pain in right leg; M79.605 Pain in left leg; M54.9 Dorsalgia, unspecified; J43.9 Emphysema, unspecified; M19.90 Unspecified osteoarthritis, unspecified site; F41.9 Anxiety disorder, unspecified; Z85.3 Personal history of malignant neoplasm of breast; Z87.440 Personal history of urinary (tract) infections; Z88.1 Allergy status to other antibiotic agents; Z90.89 Acquired absence of other organs
CPT/HCPCS: 99283

== ENCOUNTER 2025-05-23 14:00 | Emergency (ER) | payer BC, MEDICAID ==
[~2025-05-23] VITALS: Ht 165.1 cm; Wt 48.0 kg
[~2025-05-23 14:00] MED LIST changes: +ASPI-12 PO; -CYCL-1 PO; -CYCL-394 PO; -GABA-532 PO; -LOP12.5T PO; -MELA10TA2 PO; -MIRT-87 PO; -NAPR-56 PO; -NICO-631 TD
[2025-05-23 15:19] VITALS: BP 111/64; PULSE 101; RESP 16; TEMP 97.8; O2SAT 94
--- NOTE | 2025-05-23 16:17 | Physician Documentation ---
History of Present Illness General Chief Complaint: Back Pain Stated Complaint: LOW BACK PAIN BED BUGS Time Seen by MD: 15:35 Primary Medical Doctor: Ari Arrieta MD History of Present Illness Initial Comments 74-year-old female brought in by ambulance for evaluation of incontinence. Patient reports for the last couple months he has she has had increasing incontinence became difficult for her to get to the restroom. Reports that she has been primarily wheelchair bound for a proximally 3-5 years and despite wearing please feels that her incontinence frequency is increased. Has a mild complain of dysuria. No fever, nausea or vomiting or flank pain. She is frustrated. She is aligned with the primary care physician however has not seen a primary care physician. Denies taking any medications, smokes 5-7 cigarettes a day and drinks only occasionally. She has no SI and/or HI. Medication Reconciliation Allergies: Coded Allergies: cephalexin (Verified Allergy, Unknown, UNSURE, POSSIBLE RASH, 05/23/25) Scheduled Aspirin/Calcium Carbonate/Mag (Aspirin Buffered 325 Mg Tab), 1 TAB PO Q12H, (Reported) Past Medical History Past Medical History: Bronchitis, COPD, Emphysema, Diverticulitis, Diverticulosis, GERD, Kidney Stones, UTI, Arthritis, Chronic Pain, Chronic Back Pain, Extremity Fracture, Osteoporosis, Spine Compression, Basal Cell, Breast Cancer, Anxiety, Depression Past Surgical History: tonsillectomy Smoking: Cigarettes, Less than 1 pack/day Alcohol Use: Other Drug Use: none Lives with: Alone Lives In: Other Occupation: disabled Review of Systems All Other Systems at this time: Reviewed and Negative Physical Exam Physical Exam Vital Signs: RN Vital Signs have been reviewed: Yes, Temperature: 97.8, Source: Oral, Heart Rate: 101, Respiratory Rate: 16, BP: 111/64, Pulse Oximetry: 94, Weight: 48.000 Oxygen Flow Rate: 0 General Appearance: alert, WD/WN General Appearance Anxious and frustrated Face: normal inspection Pupils/EOM/Fundus: PERRLA Neck: non-tender Respiratory: lungs clear Chest: no accessory muscle use Gastrointestinal: non-tender Back: normal inspection Extremities: normal range of motion Neurologic: oriented x4 Motor / Sensory: no motor deficit, no sensory deficit Psychiatric: normal mood/affect Skin: normal color, warm/dry Lymphatic: no adenopathy Progress Results/Orders Results/Orders Orders - OTIS BEEBE PAC Cult Urine + [address] (05/23/25 17:02) Completed Orders - OTIS BEEBE PAC Cbc/Diff (05/23/25 15:47) BMP (05/23/25 15:47) Ethanol (05/23/25 15:47) Ua W/Microscopic, Cult If Ind (05/23/25 16:44) Vital Signs 05/23/25 15:19 Temp 97.8 Pulse 101 Resp 16 B/P (MAP) 111/64 Pulse Ox 94 O2 Flow Rate 0 Laboratory Tests Test 05/23/25 16:06 05/23/25 16:44 White Blood Count 4.8 Red Blood Count 3.44 L Hemoglobin 9.8 L Hematocrit 30.6 L Mean Corpuscular Volume 88.8 Mean Corpuscular Hemoglobin 28.6 Mean Corpuscular Hemoglobin Concent 32.1 L Red Cell Distribution Width 20.7 H Platelet Count 288 Mean Platelet Volume 8.0 Neutrophils (%) (Auto) 55.4 Lymphocytes (%) (Auto) 23.6 Monocytes (%) (Auto) 14.8 H Eosinophils (%) (Auto) 4.2 Basophils (%) (Auto) 2.0 H Neutrophils # (Auto) 2.7 Lymphocytes # (Auto) 1.1 Monocytes # (Auto) 0.7 Eosinophils # (Auto) 0.2 Basophils # (Auto) 0.1 CBC Comment Sodium Level 146 H Potassium Level 3.2 L Chloride Level 109 H Carbon Dioxide Level 22.3 L Anion Gap 15 Blood Urea Nitrogen 13 Creatinine 0.47 Estimated GFR/1.73 m2 > 90 BUN/Creatinine Ratio 27.7 H Glucose Level 79 Calcium Level 9.0 Albumin 3.2 L Chemistry Comments Ethyl Alcohol Level 126 H Urine Specimen Description Lopez cath Urine Color Straw Urine Clarity Slightly cloudy Urine pH 7.0 Urine Specific [place] 1.010 Urine Protein Negative Urine Glucose (UA) Negative Urine Ketones Negative Urine Occult Blood Negative Urine Nitrite Negative Urine Bilirubin Negative Urine Urobilinogen 0.2 Urine Leukocyte Esterase Large H Urine RBC 0-2 Urine WBC 5-10 H Urine Squamous Epithelial Cells None seen Urine Transitional Epithelial Cells Few Urine Amorphous Phosphates 3+ Urine Bacteria 3+ Urine Culture Indicated Indicated Volume Urine Centrifuged 10 ml Urine Comment Medical Decision Making Additional information obtaine: N/A Findings 74-year-old frustrated female presents to the emergency department via ambulance for evaluation of urinary incontinence with increased frequency with mild dysuria. Patient's frustration sent from being in his wheelchair and by the time she gets herself up into her wheelchair into the restroom she finds that she has been again incontinent. She does wear briefs. Today in the emergency department she will have urinary screening along laboratory screening to evaluate for kidney functions and in infection. She is resting well and not requiring current intervention. Plan is to discharge patient a treat accordingly. Labs reviewed. No JEN. Simple UTI with pending C&S. We will begin outpatient Macrobid. Received 1st dose antibiotic in the emergency department. Patient is safe for discharge without clinical suspicion for pyelonephritis. Differential Diagnosis Differential diagnosis include but not limited to: UTI, urine incontinence due to urge, stress and/or overflow, kidney infection, renal lithiasis, kidney infarction, JEN Departure Disposition: HOME / SELF CARE / HOMELESS Impression: Primary Impression: Urine incontinence Qualified Codes: R32 - Unspecified urinary incontinence Additional Impression: UTI (urinary tract infection) Qualified Codes: N30.00 - Acute cystitis without hematuria Condition: Stable Discharge Instructions: Urinary Incontinence in Females: How to Manage, Urinary Tract Infection, Female Additional Instructions: Please begin antibiotic as directed for urinary tract infection. Urinary tract infection may be contributing to your incontinence. Please make follow up appointment with your primary care physician. Return to the emergency department as needed. Thank you for visiting [facility]. Referrals: NO PRIMARY CARE PROVIDER (PCP) Prescriptions Nitrofurantoin Monohyd/M-Cryst (Macrobid 100 mg Capsule) 100 Mg Capsule 1 CAP PO Q12H for 7 Days, #14 CAP 0 Refills Prov: OTIS BEEBE 05/23/25 Education Educated: Patient Educated regarding: diagnosis, treatment, prognosis Signature Scribe Signature: . Attestation: . OTIS BEEBE PAC May 23, 2025 16:17
[2025-05-23 16:18] LABS: MEAN PLATELET VOLUME 8.0 FL (7.4-10.4); RED CELL DISTRIBUTION WIDTH 20.7 % (11.5-14.5)
[2025-05-23 16:29] LABS: CREATININE 0.47 MG/DL (0.40-0.90); ETHANOL 126 MG/DL (<10); TOTAL CARBON DIOXIDE 22.3 MMOL/L (24-32); eCRCL 80 ML/MIN; eGFR > 90 ML/MIN
[2025-05-23 16:51] LABS: LEUKOCYTE ESTERASE ,URINE LARGE (Neg); NITRITES, URINE NEGATIVE (Neg); OCCULT BLOOD,URINE NEGATIVE (Neg)
[2025-05-23 16:59] LABS: UA COLLECTION TYPE FOLEY CATH
[2025-05-23 17:01] LABS: AMORPHOUS PHOSPHATES 3+; SQUAMOUS EPITHELIAL CELL,UR NONE SEEN /LPF (FEW)
[2025-05-23] MEDS ORDERED: NITR100C6 PO (17:42)
[2025-05-23] MEDS: nitrofuran monohydrate/nitrofuran macrocrysal 100 MG (MacroBID) capsule PO ONE (18:18)
[2025-05-23] MEDS: NYSTATIN CREAM - 30GM TUBE TP STA (18:27)
== END 2025-05-23 18:55 | disposition home or self-care (01) ==
LOC: ER 14:01
DX: N39.0 Urinary tract infection, site not specified (principal); R32 Unspecified urinary incontinence; M19.90 Unspecified osteoarthritis, unspecified site; G89.29 Other chronic pain; F41.9 Anxiety disorder, unspecified; F32.A Depression, unspecified; J44.9 Chronic obstructive pulmonary disease, unspecified; K21.9 Gastro-esophageal reflux disease without esophagitis; F17.210 Nicotine dependence, cigarettes, uncomplicated; Z85.3 Personal history of malignant neoplasm of breast; Z87.440 Personal history of urinary (tract) infections; Z87.442 Personal history of urinary calculi; Z88.1 Allergy status to other antibiotic agents; Z90.89 Acquired absence of other organs; Z79.899 Other long term (current) drug therapy; Z60.2 Problems related to living alone
CPT/HCPCS: 36415; 51702; 80048; 80320; 81001; 85025; 87088; 87186; 99284; A4314